=== PATIENT | female | born 1940 | race Caucasian/White ===

== ENCOUNTER → 2017-03-01 | Outpatient (CLI) | payer MEDICARE ==
[~2017-03-01] MED LIST: ALEN1TAB48 PO; ALPR0.25 PO; AMLO5 PO; ASCO500 PO; ASPI325T PO; ASPI81CH CHEW; ATOR20TA42 PO; CALC-179 PO; CALC1TAB12 PO; CARV12.5 PO; CARV12.52 PO; CITA10TA4 PO; COQ1150C2 PO; COQ150CA PO; IRBE300T11 PO; LEVO.075 PO; LEVO88TA2 PO; LIPI20TA PO; OMEG100010 PO; PERC2.5T PO; PERC5TAB12 PO; PRED5 PO; PRED5TAB PO; PRIL20TA2 PO; VITA1CAP17 PO; VITA500T83 PO
--- NOTE | 2017-03-03 10:55 | RSPPFT ---
DATE OF PROCEDURE: 03/01/17 COMMENTS: VOLUMES DYNAMIC: FVC and FEV1 moderately reduced. STATIC: TLC, RV mildly reduced; FRC normal. FLOWS: FEV1% mildly reduced; FEF 25-75 severely reduced. DIFFUSION: Severely reduced. FLOW VOLUME LOOP: Pattern of variable intrathoracic airways obstruction. IMPRESSION: Moderate obstructive ventilator defect with reduction in diffusion consistent with emphysema. Minimal change post-bronchodilator. There is also a co-existent restrictive defect. Airways resistance is increased.
== END ==
LOC: PHRSP 10:31
PROVIDERS: ATTEND Internal Medicine
DX: J44.9 Chronic obstructive pulmonary disease, unspecified (principal)
CPT/HCPCS: 94060; 94620; 94726; 94729

== ENCOUNTER 2017-03-07 17:25 | Emergency (ER) | payer MEDICARE ==
[~2017-03-07] VITALS: Ht 157.5 cm; Wt 73.0 kg
[~2017-03-07 17:25] MED LIST changes: -ALEN1TAB48 PO; -ALPR0.25 PO; -ASPI81CH CHEW; -CALC1TAB12 PO; -CARV12.52 PO; -CITA10TA4 PO; -COQ150CA PO; -LEVO88TA2 PO; -LIPI20TA PO; -OMEG100010 PO; -PERC2.5T PO; -PERC5TAB12 PO; -PRED5TAB PO; -VITA1CAP17 PO; -VITA500T83 PO
[2017-03-07] MEDS ORDERED: IOHEXOL 350 MG/ML 10 ML VIAL (for RAD DIAG) IVCONTRAST ONE (17:26)
[2017-03-07 17:28] VITALS: BP 188/83; PULSE 77; RESP 17; TEMP 98.4; O2SAT 95
--- NOTE | 2017-03-07 17:44 | PD ---
Physical Exam Time Seen by Provider: 17:42 Narrative 76yo F c/o left sided chest pain started around 3 am. Has left lung needle biopsy scheduled tomorrow, here at [place], of a nodule found on CT January 17. + SOB and pain with deep breathing. HX of AL and stents. Patient seen in triage. VS reviewed. Patient awaiting bed placement. Data Data Last Documented VS Vital Signs Date Time Temp Pulse Resp B/P (MAP) Pulse Ox O2 Delivery O2 Flow Rate FiO2 03/07/17 17:28 98.4 77 17 188/83 (118) 95 MDM Supervised Visit with DELORIS: Yamile Goldberg Mar 07, 2017 17:44
[2017-03-07] MEDS ORDERED: SODIUM CHLORIDE 0.9% FLUSH 10 ML FLUSH IVF PRN (17:45)
[2017-03-07 18:33] LABS: AUTOMATED NEUTROPHIL # 10.2 TH/MM3 (1.8-7.7); BASOPHIL % 0.3 % (0.0-2.0); EOSINOPHIL # 0.1 TH/MM3 (0-0.4); EOSINOPHIL % 1.1 % (0.0-4.0); HEMATOCRIT 32.8 % (35.0-46.0); HEMO FLAGS DIFF FINAL; LYMPH % 14.9 % (9.0-44.0); MEAN CELL VOLUME 81.9 FL (80.0-100.0); MEAN CORPUSCULAR HEMOGLOBIN 26.7 PG (27.0-34.0); MEAN CORPUSCULAR HGB CONC 32.6 % (32.0-36.0); MONO % 9.3 % (0.0-8.0); NEUT % 74.4 % (16.0-70.0); PLATELET COUNT 280 TH/MM3 (150-450); RED CELL DISTRIBUTION WIDTH 14.5 % (11.6-17.2); WHITE BLOOD COUNT 13.7 TH/MM3 (4.0-11.0)
[2017-03-07 18:40] LABS: APTT (PATIENT) 21.1 SEC (24.3-30.1); INTERNATIONAL NORMALIZED RATIO 1.1 RATIO; PROTHROMBIN TIME - PATIENT 11.8 SEC (9.8-11.6)
[2017-03-07 18:52] LABS: BICARBONATE 29.1 MEQ/L (21.0-32.0); MAGNESIUM 1.7 MG/DL (1.5-2.5)
--- NOTE | 2017-03-07 19:50 | RADRPT ---
EXAM DATE/TIME: 03/07/2017 18:16 [facility] COMPARISON: CHEST SINGLE AP, November 26, 2012, 6:22. CHEST PA & LAT, March 05, 2012, 11:44. INDICATIONS : Left upper chest pain today. MEDICAL HISTORY : Cardiovascular disease. SURGICAL HISTORY : Coronary artery stent. ENCOUNTER: Initial ACUITY: 1 day PAIN SCORE: 5/10 LOCATION: Left chest FINDINGS: PA and lateral views of the chest demonstrate a new nonspecific patchy infiltrate in the left upper l true. There is chronic interstitial changes bilaterally. The heart size is enlarged but stable.. Osse ous structures are intact. CONCLUSION: There is a new nonspecific infiltrate in the left upper lung. Pneumonia would be the primary consider ation. Recommend followup chest in 2-3 weeks after appropriate medical therapy. If the infiltrate pope s not resolve after appropriate medical therapy, recommend a noncontrast CT thorax for further evalua tion. Beto Castro MD on March 07, 2017 at 19:46 Board Certified Radiologist. This report was verified electronically.
[2017-03-07 20:16] VITALS: BP 200/95; PULSE 79; RESP 19; O2SAT 100
[2017-03-07 20:22] VITALS: BP 206/89; PULSE 72; RESP 16; O2SAT 100
--- NOTE | 2017-03-07 20:35 | PD ---
HPI Chief Complaint: Chest Pain Time Seen by Provider: 20:13 Travel History International Travel<30 days: No Contact w/Intl Traveler<30days: No Traveled to known affect area: No History of Present Illness HPI 76yo F with PMH of CAD s/p cardiac stent LAD 05/17/2010 and stent circumflex , HLD, HTN, SLE, hypothyroidism presents to the ED with c/o left sided chest pain since 3pm today. States it is achy, pressure like and worst with deep breathing. Associated with sob. Exertion makes the chest pain better. She has had similar chest pain in different parts of her left chest since 2016 and has had a CT scan that showed a lung nodule in her left upper lung. She was recently clear by her executive asst Dr. Rebollar for biopsy of the lung nodule. Denies any fever, cough, n/v, abdominal pain, headache, focal weakness or numbness. Pt's blood pressure is found to be elevated in the ED and pt states she has been compliant with her blood pressure medications. Last stress test I have on our record is in 11/2012. PFSH Past Medical History Arthritis: Yes Asthma: Yes (ASTHMATIC BRONCHITIS WHEN IN [place]) Autoimmune Disease: Yes (LUPUS) Blood Disorders: No Anxiety: No Depression: No Heart Rhythm Problems: Yes (BBB, TACHYCARDIA) Cancer: No Cardiac Catheterization: No Cardiovascular Problems: Yes (NH, 2 STENTS) High Cholesterol: Yes Chemotherapy: No Chest Pain: Yes Congestive Heart Failure: No COPD: No Diabetes: No Diminished Hearing: No Endocrine: Yes Gastrointestinal Disorders: Yes (TUBULOVILLOUS POLYP) GERD: Yes Glaucoma: No Genitourinary: No Hepatitis: No Hiatal Hernia: No Hypertension: Yes Immune Disorder: Yes Implanted Vascular Access Dvce: Yes Musculoskeletal: Yes (OSTEOPENIA) Neurologic: No Psychiatric: No Reproductive: No Respiratory: Yes Myocardial Infarction: Yes (05/19) Radiation Therapy: No Sickle Cell Disease: No Sleep Apnea: No Thyroid Disease: Yes Ulcer: No Menopausal: Yes Past Surgical History Abdominal Surgery: No AICD: No Appendectomy: No Arteriovenous Shunt: No Body Medical Devices: STENTS Cardiac Surgery: Yes (TWO STENTS IN ONE ARTERY, ONE STENT IN ANOTHER ARTERY, CARDIAC CATHERIZATIO) Cholecystectomy: No Coronary Artery Bypass Graft: No Ear Surgery: No Endocrine Surgery: Yes (THYROIDECTOMY TWICE) Eye Surgery: Yes (CATARACT SURGERY/RADIALECTOMETRY ON LEFT EYE) Genitourinary Surgery: No Gynecologic Surgery: Yes (SALPINGO-OPHERECTOMY) Insulin Pump: No Joint Replacement: No Oral Surgery: Yes (TONSILLECTOMY) Pacemaker: No Thoracic Surgery: No Other Surgery: Yes Social History Alcohol Use: No Tobacco Use: No Substance Use: No Allergies-Medications (Allergen,Severity, Reaction): Coded Allergies: clarithromycin (Unverified Allergy, Intermediate, RASH, 03/07/17) codeine (Unverified Allergy, Intermediate, NAUSEA, 03/07/17) fluconazole (Unverified Allergy, Intermediate, RASH, 03/07/17) leflunomide (Unverified Allergy, Intermediate, RASH, 03/07/17) levofloxacin (Unverified Allergy, Intermediate, RASH, 03/07/17) Reported Meds & Prescriptions Reported Meds & Active Scripts Active Reported Citalopram (Citalopram Hydrobromide) 10 Mg Tab 10 Mg PO DAILY Prednisone 5 Mg Tab 4 Mg PO DAILY Irbesartan 300 Mg Tab 300 Mg PO Lipitor (Atorvastatin Calcium) 20 Mg Tab 20 Mg PO DAILY Norvasc (Amlodipine Besylate) 5 Mg Tab 5 Mg PO DAILY Calcium (Calcium & Phosphorus W/ Vitami) Tab 1 Tab PO BID Coq10 (Coenzyme Q10) 150 Mg Cap 150 Mg PO DAILY Vitamin C 500 Mg Tab (Ascorbic Acid) 500 Mg Tab 500 Mg PO DAILY Prilosec Otc (Omeprazole Magnesium) 20 Mg Tab 20 Mg PO DAILY Synthroid (Levothyroxine Sodium) 75 Mcg Tab 88 Mcg PO DAILY Aspirin 325 mg (Aspirin) 325 Mg Tab 81 Mg PO DAILY Coreg 12.5 mg (Carvedilol) 12.5 Mg Tab 25 Mg PO BID Review of Systems Except as stated in HPI: all other systems reviewed are Neg Physical Exam Narrative GENERAL: 76yo F not in distress. SKIN: Focused skin assessment warm/dry. HEAD: Atraumatic. Normocephalic. CARDIOVASCULAR: Regular rate and rhythm. No murmur appreciated. RESPIRATORY: No accessory muscle use. Clear to auscultation. Breath sounds equal bilaterally. CHEST WALL: Not tender to palpation. GASTROINTESTINAL: Abdomen soft, non-tender, nondistended. No rebound tenderness or guarding. MUSCULOSKELETAL: No obvious deformities. No clubbing. No cyanosis. No edema. NEUROLOGICAL: Awake and alert. No obvious cranial nerve deficits. Motor grossly within normal limits. Normal speech. PSYCHIATRIC: Appropriate mood and affect; insight and judgment normal. Data Data Last Documented VS Vital Signs Date Time Temp Pulse Resp B/P (MAP) Pulse Ox O2 Delivery O2 Flow Rate FiO2 03/07/17 21:35 80 18 196/90 (125) 100 Nasal Cannula 2.00 03/07/17 17:28 98.4 Orders Orders Electrocardiogram (03/07/17 17:45) Basic Metabolic Panel (Bmp) (03/07/17 17:45) Ckmb (Isoenzyme) Profile (03/07/17 17:45) Complete Blood Count With Diff (03/07/17 17:45) Magnesium (Mg) (03/07/17 17:45) Prothrombin Time / Inr (Pt) (03/07/17 17:45) Act Partial Throm Time (Ptt) (03/07/17 17:45) Troponin I (03/07/17 17:45) Ecg Monitoring (03/07/17 17:45) Iv Access Insert/Monitor (03/07/17 17:45) Oximetry (03/07/17 17:45) Oxygen Administration (03/07/17 17:45) Sodium Chloride 0.9% Flush (Ns Flush) (03/07/17 17:45) Chest, Pa & Lat (03/07/17 17:45) Hydralazine Inj (Apresoline Inj) (03/07/17 21:00) Ct Pulmonary Angiogram (03/07/17 ) Morphine Inj (Morphine Inj) (03/07/17 21:00) Iohexol 350 Inj (Omnipaque 350 Inj) (03/07/17 17:26) Labs Laboratory Tests Test 03/07/17 18:04 White Blood Count 13.7 TH/MM3 Red Blood Count 4.00 MIL/MM3 Hemoglobin 10.7 GM/DL Hematocrit 32.8 % Mean Corpuscular Volume 81.9 FL Mean Corpuscular Hemoglobin 26.7 PG Mean Corpuscular Hemoglobin Concent 32.6 % Red Cell Distribution Width 14.5 % Platelet Count 280 TH/MM3 Mean Platelet Volume 7.3 FL Neutrophils (%) (Auto) 74.4 % Lymphocytes (%) (Auto) 14.9 % Monocytes (%) (Auto) 9.3 % Eosinophils (%) (Auto) 1.1 % Basophils (%) (Auto) 0.3 % Neutrophils # (Auto) 10.2 TH/MM3 Lymphocytes # (Auto) 2.0 TH/MM3 Monocytes # (Auto) 1.3 TH/MM3 Eosinophils # (Auto) 0.1 TH/MM3 Basophils # (Auto) 0.0 TH/MM3 CBC Comment DIFF FINAL Differential Comment Prothrombin Time 11.8 SEC Prothromb Time International Ratio 1.1 RATIO Activated Partial Thromboplast Time 21.1 SEC Blood Urea Nitrogen 18 MG/DL Creatinine 0.89 MG/DL Random Glucose 117 MG/DL Calcium Level 8.6 MG/DL Magnesium Level 1.7 MG/DL Sodium Level 135 MEQ/L Potassium Level 4.0 MEQ/L Chloride Level 100 MEQ/L Carbon Dioxide Level 29.1 MEQ/L Anion Gap 6 MEQ/L Estimat Glomerular Filtration Rate 61 ML/MIN Total Creatine Kinase 59 U/L Troponin I 0.02 NG/ML MDM Medical Decision Making Medical Screen Exam Complete: Yes Emergency Medical Condition: Yes Interpretation(s) EKG: NSR 68bpm. RBBB. Q wave III, aVF. TWI III, aVF, V4. Differential Diagnosis ACS vs. pneumonia vs. malignancy vs. pleural effusion vs. PE Narrative Course 76yo F with pleuritic chest pain since 3pm today. Pt had similar chest pain intermittently since January and is having an outpatient work up for biopsy of her lung nodule found on CT scan. Labs reviewed, leukocytosis at 13.7. H/H is low at 10.7/32.8 but this is her baseline. Troponin negative. CXR showed a new nonspecific infiltrate in left upper lung. Pneumonia would be primary consideration. This may be the lung nodule that was found on previous CT scan. Pt has no fever or cough so I do not think she has pneumonia. I discussed with Dr. Rebollar and he states that this pain is from her cancer. He knows her very well and has seen her for this before. 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 This is likely chest wall pain from her malignancy but will do CT angio to r/o PE since she has increased risk for PE. Pt has appointment with Dr. Beltran tomorrow for biopsy. Blood pressure is 206/89 , will give hydralazine 10mg IV and morphine 2mg IV for pain. CT angio showed no PE. Pleural based soft tissue mass in anterior left upper lung. Pt already has biopsy scheduled tomorrow. Repeat BP is 153/72 and saturating at 98% on RA. Return precautions given. Diagnosis Primary Impression: Lung mass Patient Instructions: General Instructions Departure Forms: Tests/Procedures Additional Instructions: Please follow up with Dr. Beltran tomorrow for biopsy. Return to the ED if symptoms worsen. Med/Other Pt SpecificInfo: Prescription(s) given Scripts Oxycodone-Acetaminophen (Percocet) 2.5-325 mg Tab 1 TAB PO Q6H Y for PAIN SCALE 1 TO 4 for 3 Days, #12 TAB 0 Refills Prov: Izabela Urbano DO 03/07/17 Disposition: 01 DISCHARGE HOME Condition: Stable Izabela Urbano DO Mar 07, 2017 20:35
[2017-03-07] MEDS ORDERED: hydrALAZINE HCL 20 MG/ML VIAL IV PUSH ONE (21:00)
[2017-03-07] MEDS ORDERED: MORPHINE SULFATE 4 MG/ML INJ IV PUSH ONE (21:00)
[2017-03-07] MEDS ORDERED: PRED5TAB PO (21:11)
[2017-03-07] MEDS ORDERED: CITA10TA4 PO (21:12)
[2017-03-07 21:35] VITALS: BP 196/90; PULSE 80; RESP 18; O2SAT 100
--- NOTE | 2017-03-07 22:16 | RADRPT ---
EXAM DATE/TIME: 03/07/2017 21:47 [facility] COMPARISON: CHEST PA & LAT, March 07, 2017, 18:16. INDICATIONS : Short of breath,evaluate for pulmonary embolism. History of left chest wall malignancy. IV CONTRAST: 60 cc Omnipaque 350 (iohexol) IV RADIATION DOSE: 19.81 CTDIvol (mGy) MEDICAL HISTORY : Cardiovascular disease. Hypertension. Lupus. SURGICAL HISTORY : Coronary artery stent. ENCOUNTER: Initial ACUITY: 2 days PAIN SCALE: 3/10 LOCATION: chest TECHNIQUE: Volumetric scanning of the chest was performed using a pulmonary embolism protocol MIP images were re constructed. Using automated exposure control and adjustment of the mA and/or kV according to patien t size, radiation dose was kept as low as reasonably achievable to obtain optimal diagnostic quality images. DICOM format image data is available electronically for review and comparison. Follow-up recommendations for detected pulmonary nodules are based at a minimum on nodule size and pa tient risk factors according to Fleischner Society Guidelines. FINDINGS: PULMONARY ARTERIES: No filling defects are seen in the pulmonary arteries through the segmental level. LUNGS: There is a 4 mm and 7 mm nodule in the right upper lung. There are interstitial nonspecific infiltrat es in both lung bases, left greater than right. There is a pleural-based soft tissue mass along the a nterior left upper lung measuring 5.5 x 2.0 cm. The adjacent bony structures remain grossly intact. PLEURAE: No pleural effusions. Pleural-based mass in the anterior left upper lung as described. MEDIASTINUM: Several enlarged nonspecific mediastinal lymph nodes are demonstrated suspicious for adenopathy. MUSCULOSKELETAL: Within normal limits for patient age. Bony degenerative changes. MISCELLANEOUS: The visualized upper abdominal organs demonstrate no acute abnormality. CONCLUSION: 1. No evidence of pulmonary embolism. 2. Pleural-based soft tissue mass in the anterior left upper lung measuring 5.5 x 2.0 cm. Primary patricia plastic disease is the consideration. There also 2 nonspecific pulmonary nodules in the right upper l true. There is nonspecific mediastinal adenopathy. Recommend a PET/CT to evaluate for hypermetabolic activity and staging. 3. Nonspecific interstitial infiltrates are noted in both lung bases, left greater than right. This c ould be either chronic or acute. Beto Castro MD on March 07, 2017 at 22:06 Board Certified Radiologist. This report was verified electronically.
[2017-03-07] MEDS ORDERED: PERC2.5T PO (22:56)
[2017-03-08] MEDS ORDERED: VITA500T83 PO (06:49)
[2017-03-08] MEDS ORDERED: LIPI20TA PO (06:49)
[2017-03-08] MEDS ORDERED: LEVO88TA2 PO (06:49)
[2017-03-08] MEDS ORDERED: ASPI81CH CHEW (06:49)
[2017-03-08] MEDS ORDERED: AMLO5 PO (06:49)
[2017-03-08] MEDS ORDERED: PRIL20TA2 PO (06:49)
[2017-03-08] MEDS ORDERED: CALC1TAB12 PO (06:49)
[2017-03-08] MEDS ORDERED: IRBE300T11 PO (06:49)
[2017-03-08] MEDS ORDERED: COQ150CA PO (06:49)
[2017-03-08] MEDS ORDERED: CARV12.52 PO (06:49)
[2017-03-08] MEDS ORDERED: PERC5TAB12 PO (12:38)
--- NOTE | 2017-03-08 17:04 | EKG ---
Date Performed: 03/07/2017 Time Performed: 17:52:02 PTAGE: 76 years EKG: Sinus rhythm INDETERMINATE AXIS RIGHT BUNDLE BRANCH BLOCK Since previous tracing, no significant change noted ABN ORMAL ECG PREVIOUS TRACING : 11/26/2012 19.32 DOCTOR: April King Interpretating Date/Time 03/08/2017 17:01:42
== END 2017-03-07 23:47 | disposition home or self-care (01) ==
LOC: NEPC 17:25
DX: R91.8 Other nonspecific abnormal finding of lung field (principal); R07.89 Other chest pain; R06.02 Shortness of breath; I45.10 Unspecified right bundle-branch block; R94.31 Abnormal electrocardiogram [ECG] [EKG]; I25.10 Atherosclerotic heart disease of native coronary artery without angina pectoris; E78.5 Hyperlipidemia, unspecified; I10 Essential (primary) hypertension; M32.9 Systemic lupus erythematosus, unspecified
CPT/HCPCS: 71020; 71275; 80048; 82550; 83735; 84484; 85025; 85610; 85730; 93005; 96374; 96375; 99285; J0360; J2270; Q9967

== ENCOUNTER 2017-03-08 06:24 | Day surgery (SDC) | payer MEDICARE ==
--- NOTE | 2017-03-07 07:54 | MB ---
cc: HAL WALTER M.D., STEVEN KOHEN,PAXTON REBOLLAR,MIRTHA Schultz M.D. DATE OF CONSULTATION: 02/24/2017 REASON FOR CONSULTATION: This is for an outpatient lung biopsy being scheduled. HISTORY OF PRESENT ILLNESS Miss Wheeler is a 76-year-old white female who has had a vague discomfort in the left upper chest for several weeks, she saw her primary physician who did a chest x-ray, it was abnormal. She had a CT scan which revealed a 6 x 2 left upper lobe mass probable malignancy. She has minimal prior smoking history, less than 5-10 cigarettes a day over 10-15 years and quit smoking in her mid to late 30s, 40 years ago. She does get short of breath with exertion. She has been told she has asthmatic bronchitis but does not take any specific therapy at present. She has had no unusual cough or hemoptysis. No purulent sputum or fever. No weight loss or loss of appetite. The vague discomfort in her left upper chest was her only symptom. She had a CT of her head as well which revealed some chronic vascular changes but nothing to suggest malignancy. She does have a significant prior coronary history followed by Dr. Rebollar she had a stent placed in 2009 but currently has no anginal symptoms or symptoms of heart failure. She also has a history of systemic lupus which probably be back 30-40 years but was only diagnosed about [address] Jansen follows her now on 4-5 mg of prednisone a day, under good control. PAST MEDICAL HISTORY: Additional past history, hysterectomy Thyroidectomy for goiter Reflux with mild gastritis Atherosclerotic cerebrovascular disease Hypertension. No prior history of malignancy. ALLERGIES BIAXIN LEVAQUIN CODEINE DIFLUCAN MEDICATIONS 1. Aspirin 2. Statin 3. Amlodipine. 4. Carvedilol 5. Thyroid 6. Alendronate. 7. Omeprazole 8. Multiple vitamin. FAMILY HISTORY Father of complications of alcoholism and stomach cancer. Mother had diabetes and hypertension and in her 90s. Four children in good health A brother in good health. SOCIAL HISTORY She is living with her of many years. Unfortunately he is chronically ill and is currently on Hospice. She is retired from [employer]. Smoking noted. No alcohol use. No animal exposures. She is a practicing [employer]. REVIEW OF SYSTEMS Weight is fine, appetites been stable. She has had cataracts removed. No cardiovascular symptoms at present. No significant musculoskeletal complaints. PHYSICAL EXAMINATION VITAL SIGNS: 122/64, pulse 78, temperature 98, Respiratory 18, sat 98% room air. HEAD, EYES, EARS, NOSE, AND THROAT: sclerae anicteric. Pharynx is clear. NECK: She has a thyroidectomy scar anteriorly in the suprasternal notch. No adenopathy palpable there or in supraclavicular regions. LUNGS: She has clear lungs. No wheezes or rales. No congestion. HEART: Regular rhythm. No harsh murmur. No audible S3. ABDOMEN: Abdomen is soft, nontender. EXTREMITIES: She has no peripheral edema, cyanosis or clubbing. RADIOLOGIC: As noted above. CT scan reveals a pleural-based left upper lobe mass 6 x 2 cm. Radiologist comments that a CT-guided biopsy could be accomplished. ASSESSMENT AND PLAN: 1. The patient will be scheduled for pulmonary functions next week and then an outpatient lung biopsy. 2. Further diagnostic and/or therapeutic intervention will depend on the results of these initial diagnostic studies. R. MD SUDHIR Samaniego/aylin /10:09 AM /7:48 AM
[2017-03-08] VITALS (7 sets, daily range): BP systolic 135–155; BP diastolic 18–75; PULSE 70–76; RESP 16–18; TEMP 98.4–98.7; O2SAT 92–97
[~2017-03-08] VITALS: Ht 157.5 cm; Wt 73.2 kg
[~2017-03-08 06:24] MED LIST changes: +CITA10TA4 PO; +PERC2.5T PO; -PRED5 PO; +PRED5TAB PO
[2017-03-08] MEDS ORDERED: SODIUM CHLOR 0.9% 1000 ML IV SCH (06:45)
[2017-03-08] MEDS ORDERED: IRBE300T11 PO (06:49)
[2017-03-08] MEDS ORDERED: VITA500T83 PO (06:49)
[2017-03-08] MEDS ORDERED: COQ150CA PO (06:49)
[2017-03-08] MEDS ORDERED: ASPI81CH CHEW (06:49)
[2017-03-08] MEDS ORDERED: AMLO5 PO (06:49)
[2017-03-08] MEDS ORDERED: LEVO88TA2 PO (06:49)
[2017-03-08] MEDS ORDERED: CALC1TAB12 PO (06:49)
[2017-03-08] MEDS ORDERED: PRIL20TA2 PO (06:49)
[2017-03-08] MEDS ORDERED: CARV12.52 PO (06:49)
[2017-03-08] MEDS ORDERED: LIPI20TA PO (06:49)
[2017-03-08] MEDS ORDERED: LIDOCAINE HCL 1% 20 ML VIAL ONE (07:46)
[2017-03-08] MEDS ORDERED: ONDANSETRON HCL 4 MG/2 ML VIAL ONE (07:59)
[2017-03-08] MEDS ORDERED: MIDAZOLAM HCL 2 MG/2 ML VIAL ONE (08:11)
--- NOTE | 2017-03-08 08:52 | PD.RAD ---
Post CT Procedure Prog Note Pre Procedure Diagnosis: (1) Lung mass Post Procedure Diagnosis: (1) Lung mass Procedure Date: Mar 08, 2017 Supervising Radiologist: Clifton Hernández JR Anesthesia: Conscious Sedation Plan of Activity Patient to Unit: ROPU Patient Condition: Good See PACS Report for procedural detail/treatment Biopsy Imaging Guidance: CT Side: Left Biopsy Procedure: Lung Specimen: Core Biopsy Findings: Left upper lobe peripheral mass against chest wall. 3 core samples taken. No hemorrhage or pneumothorax on post bx CT images. Jr. Edgar,Clifton Mccray MD Mar 08, 2017 08:52
--- NOTE | 2017-03-08 09:14 | RADRPT ---
EXAM DATE/TIME: 03/08/2017 08:19 [facility] COMPARISON: No previous studies available for comparison. INDICATIONS : Left lung mass SEDATION TIME: 15 minutes BIOPSY SITE: Left lung MEDICATION(S): 1.) 2 mg midazolam (Versed) IV 2.) 100 mcg fentanyl (Sublimaze) IV DEVICE(S): 1.) 17 gauge introducer 2.) 18 gauge Temno core biopsy needle MEDICAL HISTORY : Hypertension. Gastroesophageal reflux disease. Cardiovascular disease. SURGICAL HISTORY : Hysterectomy. ENCOUNTER: Initial ACUITY: 1 day PAIN SCORE: 2/10 LOCATION: Left chest A total of three core specimen(s) were obtained and sent to the laboratory for pathologic evaluation. PROCEDURE: 1. CT guided lung biopsy. 2. Conscious sedation with continuous EKG and oximetry monitoring. 3. EKG and oximetry remained stable throughout the procedure. Prior to the procedure informed consent was obtained. Any appropriate prior imaging studies were rev iewed. Using automated exposure control and adjustment of the mA and/or kV according to patient size, radiation dose was kept as low as reasonably achievable to obtain optimal diagnostic quality images. DICOM format image data is available electronically for review and comparison. The site was prepped in a sterile fashion. Full sterile technique was used, including cap, mask, goran rile gloves and gown and a large sterile sheet. Hand hygiene and 2% chlorhexidine and/or betadine/al cohol prep was utilized per protocol for cutaneous antisepsis. The skin and subcutaneous tissues wer e infiltrated with local anesthetic solution. With CT guidance the peripheral left upper lobe pulmonary mass that abuts the chest wall was localize d. Biopsy was performed using the prescribed needle as above. 3 core samples taken. Adequate hemosta sis was obtained with compression at the puncture site. Follow-up CT scan reveals no pneumothorax. Conscious sedation was performed with the prescribed dosages and duration as above in the presence of an independent trained radiology nurse to assist in the monitoring of the patient. EKG and oximetry remained stable throughout the procedure. The patient tolerated the procedure well and there were no complications. The patient was sent to Radiology Outpatient Unit in stable condition. CONCLUSION: Uncomplicated CT guided biopsy of a peripheral left upper lobe pulmonary mass.. Clifton Hernández Jr., MD on March 08, 2017 at 9:11 Board Certified Radiologist. This report was verified electronically.
[2017-03-08] MEDS ORDERED: PERC5TAB12 PO (12:38)
--- NOTE | 2017-03-08 12:38 | PD ---
Physical Exam Narrative Patient requesting change for Percocet. Data Data Last Documented VS Vital Signs Date Time Temp Pulse Resp B/P (MAP) Pulse Ox O2 Delivery O2 Flow Rate FiO2 03/08/17 11:10 70 18 155/66 (95) 95 03/08/17 08:55 98.7 03/08/17 06:59 Room Air Orders Orders Vital Signs (Adult) JERSON.Q4H (03/08/17 06:38) Sodium Chlor 0.9% 1000 Ml Inj (Ns 1000 M (03/08/17 06:45) Diet Regular Basic (03/08/17 Lunch) Ct Lung Biopsy (03/08/17 07:19) Lidocaine 1% Inj (Xylocaine 1% Inj) (03/08/17 07:46) Ondansetron Inj (Zofran Inj) (03/08/17 07:59) Fentanyl Inj (Fentanyl Inj) (03/08/17 08:11) Midazolam Inj (Versed Inj) (03/08/17 08:11) Vital Signs (Adult) Q15MX2,Q30MX3 (03/08/17 08:49) Activity Bed Rest (03/08/17 08:49) Notify Dr: Other (03/08/17 08:49) Notify Dr. Parameters (03/08/17 08:49) Discontinue Iv (03/08/17 08:49) Discharge Instructions (03/08/17 08:49) MDM Supervised Visit with DELORIS: No Scripts Oxycodone-Acetaminophen (Percocet) 5-325 mg Tab 1 TAB PO Q6H Y for PAIN, #30 TAB 0 Refills Prov: Richar Durant MD 03/08/17 Richar Durant MD Mar 08, 2017 12:38
== END 2017-03-08 12:30 | disposition home or self-care (01) ==
LOC: HRAD 06:24 → HRIP 06:28 → HRAD 12:30
PROVIDERS: ATTEND Internal Medicine
DX: C34.12 Malignant neoplasm of upper lobe, left bronchus or lung (principal); M32.9 Systemic lupus erythematosus, unspecified; I10 Essential (primary) hypertension; K21.9 Gastro-esophageal reflux disease without esophagitis; Z95.5 Presence of coronary angioplasty implant and graft
CPT/HCPCS: 32405; 77012; 88305; 88341; 88342; J2250; J2405; J3010; J7030

== ENCOUNTER 2017-04-20 06:09 | Day surgery (SDC) | payer MEDICARE ==
[~2017-04-20] VITALS: Ht 160 cm; Wt 72.7 kg
[~2017-04-20 06:09] MED LIST changes: -ASCO500 PO; -ASPI325T PO; +ASPI81CH CHEW; -ATOR20TA42 PO; -CALC-179 PO; +CALC1TAB12 PO; -CARV12.5 PO; +CARV12.52 PO; -COQ1150C2 PO; +COQ150CA PO; -LEVO.075 PO; +LEVO88TA2 PO; +LIPI20TA PO; +PERC5TAB12 PO; +VITA500T83 PO
[2017-04-20 06:35] VITALS: BP 139/72; PULSE 69; RESP 20; TEMP 98.1; O2SAT 95
[2017-04-20] MEDS ORDERED: ALEN1TAB48 PO (06:43)
[2017-04-20] MEDS ORDERED: ALPR0.25 PO (06:44)
[2017-04-20] MEDS ORDERED: OMEG100010 PO (06:45)
[2017-04-20] MEDS ORDERED: VITA1CAP17 PO (06:47)
[2017-04-20] MEDS ORDERED: SODIUM CHLORIDE 0.9% 1000 ML IV SCH ×2 (07:00→07:15)
[2017-04-20] MEDS ORDERED: POVIDONE IODINE 5% (ANTISEPSIS KIT) 4 APPLICATIONS EACH NARE SCH ×2 (07:00→07:15)
[2017-04-20] MEDS ORDERED: CHLORHEXIDINE GLUCONATE 2 % 1 PACK (2 CLOTHS) TOPICAL SCH ×2 (07:00→07:15)
[2017-04-20] MEDS ORDERED: ceFAZolin 2 GM PREMIX 50 ML - implanted port/tunneled catheter insertion IV SCH ×2 (07:00→07:15)
[2017-04-20] MEDS ORDERED: VANCOMYCIN 1000 MG/NS 250 ML - implanted port/tunneled catheter IV SCH ×4 (07:00→07:15)
[2017-04-20] MEDS ORDERED: MIDAZOLAM HCL 5 MG/5 ML VIAL ONE (07:53)
[2017-04-20 07:55] LABS: APTT (PATIENT) 20.5 SEC (24.3-30.1); INTERNATIONAL NORMALIZED RATIO 1.1 RATIO; PROTHROMBIN TIME - PATIENT 11.7 SEC (9.8-11.6)
[2017-04-20] MEDS ORDERED: SODIUM CHLORIDE 0.9% FLUSH 10 ML FLUSH IVF PRN (09:00)
--- NOTE | 2017-04-20 09:00 | PD.RAD ---
Post Procedure Progress Note Pre Procedure Diagnosis: (1) Lung mass Post Procedure Diagnosis: (1) Lung mass Procedure Date: Apr 20, 2017 Supervising Radiologist: Iam Mclean Estimated blood loss: 3 CC Anesthesia: Local, Conscious Sedation Plan of Activity Patient to Unit: ROPU Patient Condition: Fair Additional Comments: Port placed via the right IJ. Port in good position OK for use. Full dictated report to follow. See PACS Report for procedural detail/treatment Iam Mclean MD Apr 20, 2017 08:59
[2017-04-20 09:13] VITALS: BP 142/68; PULSE 91; RESP 18; TEMP 97.9; O2SAT 94
[2017-04-20 09:43] VITALS: BP 119/79; PULSE 68; RESP 17; O2SAT 95
[2017-04-20 10:13] VITALS: BP 136/68; PULSE 65; RESP 18; O2SAT 97
--- NOTE | 2017-04-20 10:58 | RADRPT ---
EXAM DATE/TIME: 04/20/2017 07:56 [facility] COMPARISON: No previous studies available for comparison. INDICATIONS : Patient presents with lung cancer in need of port placement for chemotherapy treatment. MEDICAL HISTORY : Fall risk level 1 - sensorium and coordination int No Previous Radiation Therapy Preferred Language for Healthcare Information (JAPANESE) Cancer in 2016 Cataracts in 2012 Heart Attack/NM in 2010 Heart Disease in 2010 Anxiety in 2005 Coronary Stent in 2005 Anemia in 1999 Osteoarthritis in 1999 Osteoporosis in 1999 Rheumatoid Arthritis in 1998 Scleroderma in 1998 Hypertension in 1989 Lupus in 1989 Hemorrhoids in 1988 Thyroid Disease in 1961 SURGICAL HISTORY : Hysterectomy, Complete Biopsy in 2016 Cataract removal in 2012 Colon resection in 2012 Colonoscopy in 2011 UPPER ENDOSCOPY in 1998 Thyroidectomy in 1961 Tonsillectomy in 1944 ENCOUNTER: Initial ACUITY: 2 months PAIN SCORE: 0/10 LOCATION: N/A FLUORO TIME: 0.4 minutes IMAGE SERIES: 0 SEDATION TIME: 45 minutes ACCESS: Right internal jugular vein SEDATION: 1.) 4.5 mg midazolam (Versed) IV 2.) 200 mcg fentanyl (Sublimaze) IV Prophylactic antibiotics were administered with appropriate pre-procedure timing. Vancomycin within 2 hours of procedure, Ancef (or alternative) within 1 hour of procedure. DEVICE: 1. 8 [place] single lumen Smart port CT w/vortex PROCEDURE : 1. Continuous pulse oximetry and EKG monitoring. 2. Intravenous conscious sedation. 3. Ultrasound guidance for venous access. 4. Fluoroscopic guided implantable central venous port placement. The patient was placed supine. The neck was prepped in sterile fashion. Full sterile technique was u sed, including cap, mask, sterile gloves and gown, and a large sterile sheet. Hand hygiene and 2% ch lorhexidine Betadine was utilized per protocol for cutaneous antisepsis with appropriate dry time for site. Sterile gel and sterile probe cover were utilized for ultrasound guidance. The skin and sub cutaneous tissues were infiltrated with local anesthetic solution. Under direct ultrasound guidance, central venous access was accomplished via the right internal jugul ar vein. The ultrasound images depicting access guidance were stored and saved to PACS for permanent record. A subcutaneous pocket was created using blunt dissection. The port was introduced to the p ocket. The catheter tubing was fed through a subcutaneous tunnel to the venotomy site. The catheter tubing was cut to a suitable length and then was introduced through a valved Peel-Away sheath and po sitioned with catheter tubing tip at the cavo-atrial junction level. The pocket incision was closed with subcuticular Vicryl suture. Steri-Strips were applied. The port was flushed and locked with he francisco solution per protocol. Sterile dressing was applied to the site. The patient tolerated the pr ocedure well. Conscious sedation was performed with the prescribed dosages and duration as above in the presence of an independent trained radiology nurse to assist in the monitoring of the patient. EKG and oximetry remained stable throughout the procedure. The patient tolerated the procedure well and there were no complications. The patient was sent to post anesthesia recovery in stable condition. CONCLUSION: Uncomplicated ultrasound and fluoroscopic guided implanted central venous port catheter placement as described in detail above. An 8 [place] Power port was placed. Iam Mclean MD on April 20, 2017 at 10:56 Board Certified Radiologist. This report was verified electronically.
[2017-04-20 11:13] VITALS: BP 134/64; PULSE 64; RESP 17; O2SAT 99
== END 2017-04-20 11:19 | disposition home or self-care (01) ==
LOC: HROP 06:09 → HRIP 06:11 → HROP 11:19
PROVIDERS: ATTEND Internal Medicine
DX: Z45.2 Encounter for adjustment and management of vascular access device (principal); C34.90 Malignant neoplasm of unspecified part of unspecified bronchus or lung; I10 Essential (primary) hypertension; I25.2 Old myocardial infarction; Z95.5 Presence of coronary angioplasty implant and graft; Z79.01 Long term (current) use of anticoagulants
CPT/HCPCS: 36561; 76937; 77001; 85610; 85730; 99152; 99153; C1788; J0690; J1642; J2250; J3010; J3370; J7030; J7050

== ENCOUNTER 2017-06-23 12:53 | Inpatient (IN) | payer MEDICARE ==
[~2017-06-23] VITALS: Ht 160 cm; Wt 71.7 kg
[~2017-06-23 12:53] MED LIST changes: +ALEN1TAB48 PO; +ALPR0.25 PO; +ASPI-516 CHEW; -ASPI81CH CHEW; -IRBE300T11 PO; +OMEG100010 PO; -PERC2.5T PO; -PERC5TAB12 PO; +VITA1CAP17 PO
[2017-06-23] MEDS ORDERED: VANCOMYCIN INJ 1,000 MG in SODIUM CHLOR 0.9% 250 ML INJ 250 ML IV SCH (15:45)
[2017-06-23] MEDS ORDERED: Vancomycin Consult Pharmacy 1 EA OTHER SCH (15:45)
[2017-06-23] MEDS ORDERED: VANCOMYCIN INJ 1,800 MG in SODIUM CHLORID 0.9% 500 ML INJ 500 ML IV SCH (16:30)
[2017-06-23 16:45] VITALS: BP 131/71; PULSE 93; RESP 18; TEMP 98.6; O2SAT 97
--- NOTE | 2017-06-23 16:49 | RADRPT ---
EXAM DATE/TIME: 06/23/2017 16:31 [facility] COMPARISON: CHEST PA & LAT, March 07, 2017, 18:16. INDICATIONS : Shortness of breath- Coughing and wheezing. MEDICAL HISTORY : Hypertension. Gastroesophageal reflux disease. Cardiovascular disease SURGICAL HISTORY : Hysterectomy. ENCOUNTER: Subsequent ACUITY: 3 days PAIN SCORE: 0/10 LOCATION: Bilateral chest FINDINGS: Mild infiltrate in the left lung base and left upper lung. The right lung remains grossly clear. Ther e is some chronic interstitial changes bilaterally. The heart size is enlarged but stable. No definit e pleural effusions. There is a right-sided [id number] in place. The bony structures are stable. CONCLUSION: Mild infiltrate in the left lung base and right upper lung. Beto Castro MD on June 23, 2017 at 16:46 Board Certified Radiologist. This report was verified electronically.
[2017-06-23 16:50] LABS: AUTOMATED NEUTROPHIL # 1.8 TH/MM3 (1.8-7.7); BASOPHIL % 0.2 % (0.0-2.0); EOSINOPHIL % 0.2 % (0.0-4.0); HEMATOCRIT 22.2 % (35.0-46.0); LYMPH % 26.4 % (9.0-44.0); LYMPHOCYTE # 0.9 TH/MM3 (1.0-4.8); MEAN CELL VOLUME 85.2 FL (80.0-100.0); MEAN CORPUSCULAR HEMOGLOBIN 29.9 PG (27.0-34.0); MEAN CORPUSCULAR HGB CONC 35.1 % (32.0-36.0); MONO % 16.7 % (0.0-8.0); NEUT % 56.5 % (16.0-70.0); PLATELET COUNT 86 TH/MM3 (150-450); WHITE BLOOD COUNT 3.3 TH/MM3 (4.0-11.0)
[2017-06-23 17:00] LABS: HEMO FLAGS AUTO DIFF
[2017-06-23 17:14] LABS: APTT (PATIENT) 28.5 SEC (24.3-30.1); INTERNATIONAL NORMALIZED RATIO 1.2 RATIO; PROTHROMBIN TIME - PATIENT 11.8 SEC (9.8-11.6)
[2017-06-23 17:17] LABS: BICARBONATE 30.1 MEQ/L (21.0-32.0); CALCIUM-PROTEIN CORRECTED 7.9 MG/DL (8.5-10.1); TOTAL BILIRUBIN ADULT 0.6 MG/DL (0.2-1.0)
[2017-06-23 17:38] LABS: OVALOCYTES 1+ (NORMAL); PLATELET ESTIMATE SMEAR LOW (NORMAL); PLATELET MORPHOLOGY NORMAL (NORMAL); SCAN/DIFF AUTO DIFF CONFIRMED
[2017-06-23] MEDS ORDERED: AZITHROMYCIN 500 MG/NS 250 ML IV SCH ×2 (18:00)
[2017-06-23] MEDS ORDERED: cefTRIAXone 1,000 MG/NS 100 ML IV SCH ×4 (19:00→20:00)
[2017-06-23] MEDS ORDERED: VANCOMYCIN INJ 1,800 MG in SODIUM CHLORID 0.9% 500 ML INJ 500 ML IV ONE (19:15)
[2017-06-23 20:03] VITALS: BP 127/64; PULSE 104; RESP 20; TEMP 98.8; O2SAT 95
[2017-06-23] MEDS ORDERED: PILL SPLITTER OTHER PRN (20:15)
[2017-06-23] MEDS: ATORVASTATIN 20 MG TAB PO SCH (21:39)
[2017-06-23] MEDS: CARVEDILOL 12.5 MG TAB PO SCH (21:39)
[2017-06-23] MEDS: AZITHROMYCIN 500 MG/NS 250 ML IV SCH ×2 (21:40)
[2017-06-23] MEDS: cefTRIAXone 1,000 MG/NS 100 ML IV SCH ×2 (21:41)
--- NOTE | 2017-06-24 02:33 | PD.ONC.PN ---
Subjective Subjective Remarks H&P DICTATED 77 year old with locally advanced NSCL s/p chemotherapy and XRT admitted with subjective fevers/cough/feeling unwell/fatigued Community acquired Pneumonia and symptomatic anemia Antibiotics started blood cultures pending if BC negative for 48 hours, will deescalate antibiotics Transfuse 1 unit of pRBC with premeds Objective Data Date Time Temp Pulse Resp B/P (MAP) Pulse Ox O2 Delivery O2 Flow Rate FiO2 06/23/17 20:03 98.8 104 20 127/64 (85) 95 06/23/17 16:45 98.6 93 18 131/71 (91) 97 Result Diagram: 06/23/17 1529 06/23/17 1529 Laboratory Results Laboratory Tests Test 06/23/17 15:29 White Blood Count 3.3 TH/MM3 Red Blood Count 2.60 MIL/MM3 Hemoglobin 7.8 GM/DL Hematocrit 22.2 % Mean Corpuscular Volume 85.2 FL Mean Corpuscular Hemoglobin 29.9 PG Mean Corpuscular Hemoglobin Concent 35.1 % Red Cell Distribution Width 22.0 % Platelet Count 86 TH/MM3 Mean Platelet Volume 7.3 FL Neutrophils (%) (Auto) 56.5 % Lymphocytes (%) (Auto) 26.4 % Monocytes (%) (Auto) 16.7 % Eosinophils (%) (Auto) 0.2 % Basophils (%) (Auto) 0.2 % Neutrophils # (Auto) 1.8 TH/MM3 Lymphocytes # (Auto) 0.9 TH/MM3 Monocytes # (Auto) 0.5 TH/MM3 Eosinophils # (Auto) 0.0 TH/MM3 Basophils # (Auto) 0.0 TH/MM3 CBC Comment AUTO DIFF Differential Comment AUTO DIFF CONFIRMED Platelet Estimate LOW Platelet Morphology Comment NORMAL Ovalocytes 1+ Prothrombin Time 11.8 SEC Prothromb Time International Ratio 1.2 RATIO Activated Partial Thromboplast Time 28.5 SEC Fibrinogen 376 mg/dL Blood Urea Nitrogen 11 MG/DL Creatinine 0.54 MG/DL Random Glucose 135 MG/DL Total Protein 5.6 GM/DL Albumin 2.6 GM/DL Calcium Level 7.1 MG/DL Alkaline Phosphatase 53 U/L Aspartate Amino Transf (AST/SGOT) 18 U/L Alanine Aminotransferase (ALT/SGPT) 20 U/L Total Bilirubin 0.6 MG/DL Sodium Level 135 MEQ/L Potassium Level 4.0 MEQ/L Chloride Level 97 MEQ/L Carbon Dioxide Level 30.1 MEQ/L Anion Gap 8 MEQ/L Estimat Glomerular Filtration Rate 109 ML/MIN Protein Corrected Calcium 7.9 MG/DL B-Type Natriuretic Peptide 60 PG/ML Culture Results Microbiology Date/Time Source Procedure Growth Status 06/23/17 17:11 Nasal Aspirate Influenza Types A,B Antigen (HEATHER) - Final NEGATIVE FOR FLU A AND B ANTIGEN.... Complete Administered Medications Medications (Trade) Dose Ordered Sig/Brenda Route PRN Reason Start Time Stop Time Status Last Admin Dose Admin Atorvastatin Calcium (Lipitor) 20 mg HS PO 06/23/17 21:00 06/23/17 21:39 Carvedilol (Coreg) 12.5 mg BID PO 06/23/17 21:00 06/23/17 21:39 Azithromycin 500 mg/Sodium Chloride 250 ml @ 250 mls/hr Q24H IV 06/23/17 20:00 06/23/17 21:40 Ceftriaxone Sodium 1000 mg/ Sodium Chloride 100 ml @ 200 mls/hr Q12H IV 06/23/17 21:00 06/23/17 21:41 Objective Remarks GENERAL: acutely ill SKIN: Warm and dry. HEAD: Normocephalic. EYES: No scleral icterus. No injection or drainage. NECK: Supple, trachea midline. No JVD or lymphadenopathy. LYMPHATIC: No adenopathy. CARDIOVASCULAR: tachycardic RESPIRATORY: left upper and lower lobe rhonchi/wheezing GASTROINTESTINAL: Abdomen soft, non-tender, nondistended. EXTREMITIES: No cyanosis, or edema. MUSCULOSKELETAL: Adequate muscle tone. NEUROLOGICAL: No obvious focal deficit. Awake, alert, and oriented x3. PSYCHIATRIC: Appropriate mood and affect; insight and judgment normal. Assessment/Plan Problem List: (1) Non-small cell carcinoma of lung ICD Codes: C34.90 - Malignant neoplasm of unspecified part of unspecified bronchus or lung (2) Community acquired pneumonia ICD Codes: J18.9 - Pneumonia, unspecified organism (3) Anemia ICD Codes: D64.9 - Anemia, unspecified (4) Thrombocytopenia ICD Codes: D69.6 - Thrombocytopenia, unspecified Sandip Dumont MD Jun 24, 2017 02:33
[2017-06-24] MEDS: VANCOMYCIN INJ 1,250 MG in SODIUM CHLOR 0.9% 250 ML INJ 250 ML IV SCH ×2 (05:09→18:41)
[2017-06-24] MEDS: LEVOTHYROXINE SODIUM 88 MCG TAB PO SCH (05:09)
[2017-06-24] MEDS ORDERED: ACETAMINOPHEN 325 MG TAB PO PRN (06:00)
[2017-06-24] MEDS ORDERED: diphenhydrAMINE HCL 25 MG CAP PO PRN (06:00)
[2017-06-24 06:08] LABS: HEMATOCRIT 22.8 % (35.0-46.0); MEAN CELL VOLUME 85.9 FL (80.0-100.0); MEAN CORPUSCULAR HEMOGLOBIN 30.3 PG (27.0-34.0); MEAN CORPUSCULAR HGB CONC 35.2 % (32.0-36.0); PLATELET COUNT 93 TH/MM3 (150-450); RED BLOOD COUNT 2.66 MIL/MM3 (4.00-5.30); RED CELL DISTRIBUTION WIDTH 21.7 % (11.6-17.2); WHITE BLOOD COUNT 3.1 TH/MM3 (4.0-11.0)
[2017-06-24 06:11] LABS: HEMO FLAGS AUTO DIFF
[2017-06-24 06:27] LABS: BICARBONATE 31.4 MEQ/L (21.0-32.0); POTASSIUM 3.6 MEQ/L (3.5-5.1)
[2017-06-24 06:58] LABS: CALCIUM-PROTEIN CORRECTED 7.7 MG/DL (8.5-10.1)
[2017-06-24 07:21] LABS: BANDS 8 % (0-6); METAMYELOCYTES 1 % (0-1); NEUTROPHIL # MANUAL DIFF 1.9 TH/MM3 (1.8-7.7); PLATELET ESTIMATE SMEAR LOW (NORMAL); PLATELET MORPHOLOGY NORMAL (NORMAL); POLYS (SEG NEUTROPHILS) 52 % (16-70); SCAN/DIFF FINAL DIFF MANUAL; WBC DIFF SAMPLE 100
[2017-06-24 07:22] LABS: ACANTHOCYTES OCC (NORMAL); OVALOCYTES 1+ (NORMAL); TEARDROP RBCS 1+ (NORMAL)
--- NOTE | 2017-06-24 10:18 | PD.ONC.PN ---
Subjective Subjective Remarks Afebrile Patient complaining of persistent cough "I'm not feeling much better yet" Objective Data Date Time Temp Pulse Resp B/P (MAP) Pulse Ox O2 Delivery O2 Flow Rate FiO2 06/23/17 20:03 98.8 104 20 127/64 (85) 95 06/23/17 16:45 98.6 93 18 131/71 (91) 97 06/24/17 06/24/17 06/24/17 07:00 15:00 23:00 Intake Total 930 ml Balance 930 ml Result Diagram: 06/24/17 0500 06/24/17 0500 Laboratory Results Laboratory Tests Test 06/23/17 15:29 06/24/17 05:00 White Blood Count 3.3 TH/MM3 3.1 TH/MM3 Red Blood Count 2.60 MIL/MM3 2.66 MIL/MM3 Hemoglobin 7.8 GM/DL 8.0 GM/DL Hematocrit 22.2 % 22.8 % Mean Corpuscular Volume 85.2 FL 85.9 FL Mean Corpuscular Hemoglobin 29.9 PG 30.3 PG Mean Corpuscular Hemoglobin Concent 35.1 % 35.2 % Red Cell Distribution Width 22.0 % 21.7 % Platelet Count 86 TH/MM3 93 TH/MM3 Mean Platelet Volume 7.3 FL 7.3 FL Neutrophils (%) (Auto) 56.5 % Lymphocytes (%) (Auto) 26.4 % Monocytes (%) (Auto) 16.7 % Eosinophils (%) (Auto) 0.2 % Basophils (%) (Auto) 0.2 % Neutrophils # (Auto) 1.8 TH/MM3 Lymphocytes # (Auto) 0.9 TH/MM3 Monocytes # (Auto) 0.5 TH/MM3 Eosinophils # (Auto) 0.0 TH/MM3 Basophils # (Auto) 0.0 TH/MM3 CBC Comment AUTO DIFF AUTO DIFF Differential Comment AUTO DIFF CONFIRMED FINAL DIFF MANUAL Platelet Estimate LOW LOW Platelet Morphology Comment NORMAL NORMAL Ovalocytes 1+ 1+ Prothrombin Time 11.8 SEC Prothromb Time International Ratio 1.2 RATIO Activated Partial Thromboplast Time 28.5 SEC Fibrinogen 376 mg/dL Blood Urea Nitrogen 11 MG/DL 7 MG/DL Creatinine 0.54 MG/DL 0.46 MG/DL Random Glucose 135 MG/DL 100 MG/DL Total Protein 5.6 GM/DL 5.9 GM/DL Albumin 2.6 GM/DL Calcium Level 7.1 MG/DL 7.1 MG/DL Alkaline Phosphatase 53 U/L Aspartate Amino Transf (AST/SGOT) 18 U/L Alanine Aminotransferase (ALT/SGPT) 20 U/L Total Bilirubin 0.6 MG/DL Sodium Level 135 MEQ/L 138 MEQ/L Potassium Level 4.0 MEQ/L 3.6 MEQ/L Chloride Level 97 MEQ/L 101 MEQ/L Carbon Dioxide Level 30.1 MEQ/L 31.4 MEQ/L Anion Gap 8 MEQ/L 6 MEQ/L Estimat Glomerular Filtration Rate 109 ML/MIN 131 ML/MIN Protein Corrected Calcium 7.9 MG/DL 7.7 MG/DL B-Type Natriuretic Peptide 60 PG/ML Differential Total Cells Counted 100 Neutrophils % (Manual) 52 % Band Neutrophils % 8 % Lymphocytes % 25 % Monocytes % 14 % Neutrophils # (Manual) 1.9 TH/MM3 Metamyelocytes 1 % Tear Drop Cells 1+ Acanthocytes OCC Culture Results Microbiology Date/Time Source Procedure Growth Status 06/23/17 17:11 Nasal Aspirate Influenza Types A,B Antigen (HEATEHR) - Final NEGATIVE FOR FLU A AND B ANTIGEN.... Complete Administered Medications Medications (Trade) Dose Ordered Sig/Brenda Route PRN Reason Start Time Stop Time Status Last Admin Dose Admin Vancomycin HCl 1250 mg/Sodium Chloride 262.5 ml @ 250 mls/hr Q12H IV 06/24/17 05:00 06/24/17 05:09 Atorvastatin Calcium (Lipitor) 20 mg HS PO 06/23/17 21:00 06/23/17 21:39 Carvedilol (Coreg) 12.5 mg BID PO 06/23/17 21:00 06/23/17 21:39 Levothyroxine Sodium (Synthroid) 88 mcg DAILY@0600 PO 06/24/17 06:00 06/24/17 05:09 Azithromycin 500 mg/Sodium Chloride 250 ml @ 250 mls/hr Q24H IV 06/23/17 20:00 06/23/17 21:40 Ceftriaxone Sodium 1000 mg/ Sodium Chloride 100 ml @ 200 mls/hr Q12H IV 06/23/17 21:00 06/23/17 21:41 Objective Remarks GENERAL: Elderly female sitting up in bed with occasional cough on exam SKIN: Warm and dry. HEAD: Normocephalic. EYES: No injection or drainage. NECK: Supple, trachea midline. CARDIOVASCULAR: Regular rate and rhythm without murmurs. RESPIRATORY: Scattered rhonchi, expiratory wheezing bilaterally GASTROINTESTINAL: Abdomen soft, non-tender, nondistended. EXTREMITIES: No cyanosis, or edema. MUSCULOSKELETAL: Adequate muscle tone. NEUROLOGICAL: No obvious focal deficit. Awake, alert, and oriented x3. Assessment/Plan Problem List: (1) Non-small cell carcinoma of lung ICD Codes: C34.90 - Malignant neoplasm of unspecified part of unspecified bronchus or lung Plan: -- Recently finished chemotherapy radiotherapy on 06/09/17 Hx/Workup: Poorly differentiated non-small cell lung cancer being treated with concurrent chemotherapy and radiation treatments. She presented to her primary care physician in January of 2017 with chest discomfort and CT scan in January revealed a mass which was pleural-based in the left upper lobe and measured 6.3- 3.2 cm. She was subsequently seen by Dr. Kishan Beltran. She also underwent a CT pulmonary angiogram to rule out any underlying pulmonary embolus. No pulmonary embolus was found. A hilar mass in the left upper lobe was visualized again. This was 5.2 x 2.2 cm mass on the CT angiogram. There were two nonspecific pulmonary nodules in the right upper lobe. There was nonspecific mediastinal adenopathy, but this was very small. She had a PET scan which confirmed a 6.2 x 2.1 cm hypermetabolic mass with an SUV of 15.7. There was also a smaller mass adjacent to the main lesions which appear to be soft tissue density it was difficult to tell whether there was encroachment into the chest wall. The patient was evaluated by Dr. Sprague in cardiac surgery and she was not a candidate for surgery due to high risk based on her age and frailty level. CT-guided biopsy proven a poorly differentiated non- small cell lung cancer which was reactive for cytokeratin AE1, AE3 and cytokeratin 7. There was partial reactivity for CK5 and CK6, napsin A and TTF- 1. 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 -- (2) Community acquired pneumonia ICD Codes: J18.9 - Pneumonia, unspecified organism Plan: -- On Vanco, Rocephin, Azithromycin -- Add Tessalon today (3) Anemia ICD Codes: D64.9 - Anemia, unspecified Plan: -- Likely due to immunosuppression from chemotherapy -- Transfuse 1 unit packed red blood cells today (4) Thrombocytopenia ICD Codes: D69.6 - Thrombocytopenia, unspecified Plan: -- Likely due to immunosuppression from chemotherapy Assessment 77-year-old female with poorly differentiated non-small cell lung cancer admitted for pneumonia Plan 1. Continue current antibiotics 2. Transfuse one unit packed red blood cells today 3. Monitor CBC 4. Add on Tessalon Perles for cough Attending Statement The exam, history, and the medical decision-making described in the above note were completed with the assistance of the mid-level provider. I reviewed and agree with the findings presented. I attest that I had a [id number] encounter with the patient on the same day, and personally performed and documented my assessment and findings in the medical record. Feels better. Still cough, needs something for sleep, try Lorazepam. Tolerating Azythromycin,no rash so far, no adverse reaction to abx. Cont current care. Renate Patiño Jun 24, 2017 10:17 Kinsey Peng MD Jun 24, 2017 12:26
[2017-06-24] MEDS: PANTOPRAZOLE SOD 20 MG DELAYED RELEASE TAB PO SCH (10:23)
[2017-06-24] MEDS: CARVEDILOL 12.5 MG TAB PO SCH ×2 (10:24→20:04)
[2017-06-24] MEDS: amLODIPine BESYLATE 5 MG TAB PO SCH (10:24)
[2017-06-24] MEDS: ASPIRIN 81 MG CHEW TAB CHEW SCH (10:24)
[2017-06-24] MEDS: CITALOPRAM HYDROBROMIDE 20 MG TAB PO SCH (10:24)
[2017-06-24] MEDS: cefTRIAXone 1,000 MG/NS 100 ML IV SCH ×4 (10:24→21:23)
[2017-06-24] MEDS: predniSONE 5 MG TAB PO SCH (10:24)
[2017-06-24] MEDS: ENOXAPARIN SODIUM 30 MG/0.3 ML SYRINGE SQ SCH (10:25)
[2017-06-24] MEDS: ALPRAZolam 0.25 MG TAB PO PRN ×2 (10:26→21:23)
[2017-06-24] MEDS: RESP: ALBUTEROL 2.5 MG/IPRATROPIUM 0.5 MG NEB (PRN) NEB (10:34)
[2017-06-24 10:38] VITALS: O2SAT 98
--- NOTE | 2017-06-24 12:02 | MH ---
cc: RUBY MARTINI DATE OF ADMISSION: 06/23/2017 ADMITTING DIAGNOSIS: The patient is being admitted with a with subjective fevers, chills, cough and was found to have community-acquired pneumonia and severe anemia. She has a history of [id number]-dzuv lung cancer. HISTORY OF PRESENT ILLNESS This is a 77-year-old female who has a past medical history of [id number] lung cancer. This is a poorly differentiated cancer which was treated with concurrent chemotherapy and radiation treatments. She received carboplatin and Taxol with dose reduction along with radiation. She had presented to her primary care physician in January 2017 with chest discomfort and CT revealed a pleural-based left upper lobe mass which was 6.3 x 3.[address] angiogram which confirmed a hilar mass in the left upper lobe. There were additional nodules in the right upper lobe with these were nonspecific a PET scan confirmed 6.2 x 2.1 cm hypermetabolic mass with MCV of 15.7. There is also small mass adjacent to the main lesions. She was evaluated by cardiac thoracic surgery. However she was not a candidate for any surgery due to her high frailty level. The patient began concurrent chemotherapy radiation treatments. She completed her treatments in early June 2017. She now presents with acute dyspnea subjective fevers, chills, cough and feeling unwell. She was found to be severely anemic due to concern for community-acquired pneumonia and sepsis. She was at a she was admitted to the hospital. She was chaves she was tachycardiac on admission. He does not have any abdominal pain. No diarrhea or constipation. She blood cultures have been drawn. Chest x-ray has been ordered and transfusion orders have been placed. REVIEW OF SYSTEMS A comprehensive review of systems was completed which is negative except as described in the HPI. PAST MEDICAL HISTORY 1. Dmf-tqqfz-kpeb lung cancer 2. history of cataracts. 3. Coronary artery disease 4. Anxiety 5. history of anemia 6. Osteoarthritis 7. Osteoporosis 8. rheumatoid arthritis 9. Scleroderma 10. Hypertension 11. lupus 12. hemorrhoids 13. thyroid disease. PAST SURGICAL HISTORY 1. Lung biopsy 2. Hysterectomy 3. cataract removal in 2012 4. Colon resection of 2012. 5. Colonoscopy in 2011 6. upper endoscopy in 1988 7. thyroidectomy 1961. 8. Tonsillectomy in 1944. ALLERGIES CODEINE DIFLUCAN LEVAQUIN OXYCODONE MEDICATIONS 1. Alendronate 1 tablet p.o. daily. 2. Amlodipine 5 mg daily. 3. Atorvastatin 20 mg daily. 4. Calcium capsules. 5. Carvedilol 25 mg p.o. b.i.d. 6. Citalopram 10 mg p.o. daily 7. CoQ 10 1 tablet daily 8. Levothyroxine 88 mcg daily. 9. Multivitamin daily 10. [place] 3 11. Fatty acids daily. 12. Omeprazole 20 mg p.o. daily. 13. Prednisone 4 mg one tablet daily. FAMILY HISTORY: Family history was reviewed on this admission and is noncontributory. SOCIAL HISTORY She has good social support. She does not smoke cigarettes. No alcohol abuse. No illicit drug use. She quit smoking many years ago. PHYSICAL EXAMINATION: VITAL SIGNS: Blood pressure is 127/64, pulse is in the 100, temperature is 98.8, O2 sats are 95% on room air. IN GENERAL: Elderly female who appears to be acutely ill with no in no apparent distress. HEAD, EYES, EARS, NOSE, AND THROAT: Pupils are equal, round to light. Extraocular muscles intact. No oral thrush. No oral lesions. NECK: Neck is supple. No JVD, no bruits. No lymphadenopathy. CARDIAC: She is tachycardiac, S1-S2 regular rate and rhythm. ABDOMEN: Abdomen is soft, nontender, nondistended. Bowel sounds are present. LUNGS: She had left-sided rhonchi of lower lobe. There is also diffuse wheezing. EXTREMITIES: Without any edema, erythema or cyanosis. SKIN: Without any petechiae lesion or bruises. NEUROLOGIC: No focal deficits. PSYCHIATRIC: Mood and affect is appropriate. LABORATORY DATA WBC 3.3, hemoglobin 7.8, MCV 85.2, platelet count is 86,000. Serum chemistries show sodium 138, potassium 3.6, chloride 101, CO2 31.4, BUN is six, creatinine is 0.46, GFR is 131. Calcium is 7.1, total protein is 5.9, INR is 1.2. IMAGING STUDIES Chest x-ray was reviewed and it shows infiltrate in the left lung base and the right upper lung. ASSESSMENT/PLAN This is a 77-year-old female with a past medical history of [id number]-[id number] lung cancer which is poorly differentiated she has undergone concurrent chemotherapy and radiation treatments. She presents with dyspnea subjective fevers, chills, cough and severe fatigue. 1. Community acquired pneumonia and sepsis. The patient is tachycardiac. Chest x-ray reveals bilateral pneumonia. She is feeling unwell. We will start antibiotic coverage with vancomycin, azithromycin and Rocephin. Blood cultures have been obtained. A chest x-ray has been reviewed. Will obtain a flu panel. We will check the urine for Legionella. She will get DuoNeb's treatment p.r.n. start Incentive spirometry. 2. Severe anemia with a symptomatic. We will transfuse her 1 unit of packed red blood cells. There does not appear to be hemolysis. We will obtain anemia studies. Check B12 folate and iron levels. Obtain a stool hemoccult to rule out any underlying GI bleeding. 3. Thrombocytopenia likely due to chemotherapy and pneumonia. Will continue to monitor. 4. Weakness and deconditioning consult physical therapy. 5. Hypoalbuminemia with a albumin of 2.6. Encourage oral intake dietitian consult. 6. DVT prophylaxis starter 9 mg Lovenox 30 Subcu daily ADDENDUM: DVT prophylaxis will start her on Lovenox 30 subcutaneous daily. Further recommendations will be made during the course of this admission the patient will likely require greater than 2 days of hospital admission. MD PERCY Smith/aylin /10:45 AM /8:23 AM
[2017-06-24] MEDS ORDERED: LORazepam 0.5 MG TAB PO PRN (12:30)
[2017-06-24] MEDS: BENZONATATE 100 MG CAP PO PRN (13:39)
[2017-06-24 15:35] VITALS: BP 116/67; PULSE 96; RESP 18; O2SAT 97
[2017-06-24 15:36] VITALS: TEMP 98.6
[2017-06-24 17:10] VITALS: BP 129/71; PULSE 85; RESP 18; TEMP 98.2; O2SAT 97
[2017-06-24 17:27] VITALS: PULSE 101
[2017-06-24 20:00] VITALS: BP 139/74; PULSE 96; PULSE 97; RESP 18; TEMP 98.7; O2SAT 95
[2017-06-24] MEDS: ATORVASTATIN 20 MG TAB PO SCH (20:04)
[2017-06-24] MEDS: AZITHROMYCIN 500 MG/NS 250 ML IV SCH ×2 (20:04)
[2017-06-25] VITALS (9 sets, daily range): BP systolic 124–154; BP diastolic 71–83; PULSE 81–100; RESP 16–19; TEMP 98–99; O2SAT 92–98
[2017-06-25] MEDS ORDERED: PHARMACY ORDERED LAB ONE (05:00)
[2017-06-25] MEDS: LEVOTHYROXINE SODIUM 88 MCG TAB PO SCH (05:20)
[2017-06-25] MEDS: VANCOMYCIN INJ 1,250 MG in SODIUM CHLOR 0.9% 250 ML INJ 250 ML IV SCH (05:21)
[2017-06-25 06:23] LABS: AUTOMATED NEUTROPHIL # 2.1 TH/MM3 (1.8-7.7); BASOPHIL % 0.5 % (0.0-2.0); EOSINOPHIL % 0.4 % (0.0-4.0); HEMATOCRIT 29.9 % (35.0-46.0); HEMO FLAGS DIFF FINAL; LYMPH % 24.7 % (9.0-44.0); LYMPHOCYTE # 0.9 TH/MM3 (1.0-4.8); MEAN CELL VOLUME 85.1 FL (80.0-100.0); MEAN CORPUSCULAR HEMOGLOBIN 29.2 PG (27.0-34.0); MEAN CORPUSCULAR HGB CONC 34.4 % (32.0-36.0); MONO % 18.4 % (0.0-8.0); PLATELET COUNT 105 TH/MM3 (150-450); RED BLOOD COUNT 3.52 MIL/MM3 (4.00-5.30); RED CELL DISTRIBUTION WIDTH 20.4 % (11.6-17.2); WHITE BLOOD COUNT 3.7 TH/MM3 (4.0-11.0)
[2017-06-25] MEDS: RESP: ALBUTEROL 2.5 MG/IPRATROPIUM 0.5 MG NEB (PRN) NEB (07:28)
[2017-06-25] MEDS: CARVEDILOL 12.5 MG TAB PO SCH ×2 (09:28→21:54)
[2017-06-25] MEDS: CITALOPRAM HYDROBROMIDE 20 MG TAB PO SCH (09:29)
[2017-06-25] MEDS: PANTOPRAZOLE SOD 20 MG DELAYED RELEASE TAB PO SCH (09:29)
[2017-06-25] MEDS: amLODIPine BESYLATE 5 MG TAB PO SCH (09:29)
[2017-06-25] MEDS: predniSONE 5 MG TAB PO SCH (09:29)
[2017-06-25] MEDS: ASPIRIN 81 MG CHEW TAB CHEW SCH (09:29)
[2017-06-25] MEDS: ENOXAPARIN SODIUM 30 MG/0.3 ML SYRINGE SQ SCH (09:30)
[2017-06-25] MEDS: cefTRIAXone 1,000 MG/NS 100 ML IV SCH ×4 (09:31→21:54)
--- NOTE | 2017-06-25 09:34 | PD.ONC.PN ---
Subjective Subjective Remarks Afebrile "I'm starting to feel better" Wants to know when she is going home Still has persistent cough, reports that this is improved Objective Data Date Time Temp Pulse Resp B/P (MAP) Pulse Ox O2 Delivery O2 Flow Rate FiO2 06/25/17 09:00 98.2 100 18 143/76 (98) 98 06/25/17 07:30 96 21 06/25/17 05:09 98.0 99 19 154/83 (106) 92 06/24/17 20:00 96 06/24/17 20:00 98.7 97 18 139/74 (95) 95 06/24/17 17:27 101 06/24/17 17:10 98.2 85 18 129/71 (90) 97 06/24/17 15:36 98.6 06/24/17 15:35 96 18 116/67 97 06/24/17 10:38 98 21 Result Diagram: 06/25/17 0510 06/24/17 0500 Laboratory Results Laboratory Tests Test 06/25/17 05:10 06/25/17 05:52 White Blood Count 3.7 TH/MM3 Red Blood Count 3.52 MIL/MM3 Hemoglobin 10.3 GM/DL Hematocrit 29.9 % Mean Corpuscular Volume 85.1 FL Mean Corpuscular Hemoglobin 29.2 PG Mean Corpuscular Hemoglobin Concent 34.4 % Red Cell Distribution Width 20.4 % Platelet Count 105 TH/MM3 Mean Platelet Volume 7.1 FL Neutrophils (%) (Auto) 56.0 % Lymphocytes (%) (Auto) 24.7 % Monocytes (%) (Auto) 18.4 % Eosinophils (%) (Auto) 0.4 % Basophils (%) (Auto) 0.5 % Neutrophils # (Auto) 2.1 TH/MM3 Lymphocytes # (Auto) 0.9 TH/MM3 Monocytes # (Auto) 0.7 TH/MM3 Eosinophils # (Auto) 0.0 TH/MM3 Basophils # (Auto) 0.0 TH/MM3 CBC Comment DIFF FINAL Differential Comment Vancomycin Level Trough 16.0 MCG/ML Culture Results Microbiology Date/Time Source Procedure Growth Status 06/23/17 17:11 Nasal Aspirate Influenza Types A,B Antigen (HEATHER) - Final NEGATIVE FOR FLU A AND B ANTIGEN.... Complete Administered Medications Medications (Trade) Dose Ordered Sig/Brenda Route PRN Reason Start Time Stop Time Status Last Admin Dose Admin Albuterol/ Ipratropium (Duoneb Neb) 1 ampule Q8HR NEB PRN NEB WHEEZING/DYSPNEA 06/23/17 16:45 06/25/17 07:28 Enoxaparin Sodium (Lovenox Inj) 30 mg DAILY SQ 06/24/17 09:00 06/24/17 10:25 Vancomycin HCl 1250 mg/Sodium Chloride 262.5 ml @ 250 mls/hr Q12H IV 06/24/17 05:00 06/25/17 05:21 Alprazolam (Xanax) 0.25 mg Q6H PRN PO ANXIETY 06/23/17 19:00 06/24/17 21:23 Amlodipine Besylate (Norvasc) 5 mg DAILY PO 06/24/17 09:00 06/24/17 10:24 Aspirin (Aspirin Chew) 81 mg DAILY CHEW 06/24/17 09:00 06/24/17 10:24 Atorvastatin Calcium (Lipitor) 20 mg HS PO 06/23/17 21:00 06/24/17 20:04 Carvedilol (Coreg) 12.5 mg BID PO 06/23/17 21:00 06/24/17 20:04 Citalopram Hydrobromide (CeleXA) 10 mg DAILY PO 06/24/17 09:00 06/24/17 10:24 Levothyroxine Sodium (Synthroid) 88 mcg DAILY@0600 PO 06/24/17 06:00 06/25/17 05:20 Prednisone (Deltasone) 5 mg DAILY PO 06/24/17 09:00 06/24/17 10:24 Pantoprazole Sodium (Protonix) 20 mg DAILY PO 06/24/17 09:00 06/24/17 10:23 Azithromycin 500 mg/Sodium Chloride 250 ml @ 250 mls/hr Q24H IV 06/23/17 20:00 06/24/17 20:04 Ceftriaxone Sodium 1000 mg/ Sodium Chloride 100 ml @ 200 mls/hr Q12H IV 06/23/17 21:00 06/24/17 21:23 Benzonatate (Tessalon) 100 mg TID PRN PO cough 06/24/17 10:15 06/24/17 13:39 Objective Remarks GENERAL: Elderly female sitting up in bed with occasional cough on exam SKIN: Warm and dry. HEAD: Normocephalic. EYES: No injection or drainage. NECK: Supple, trachea midline. CARDIOVASCULAR: Regular rate and rhythm without murmurs. RESPIRATORY: Scattered rhonchi; on room air. GASTROINTESTINAL: Abdomen soft, non-tender, nondistended. EXTREMITIES: No cyanosis, or edema. MUSCULOSKELETAL: Adequate muscle tone. NEUROLOGICAL: No obvious focal deficit. Awake, alert, and oriented x3. Assessment/Plan Problem List: (1) Non-small cell carcinoma of lung ICD Codes: C34.90 - Malignant neoplasm of unspecified part of unspecified bronchus or lung Plan: -- Recently finished chemotherapy radiotherapy on 06/09/17 Hx/Workup: Poorly differentiated non-small cell lung cancer being treated with concurrent chemotherapy and radiation treatments. She presents to her PCP over the summer 2016 with chest discomfort; CT scan revealed a mass that was pleural- based in the left upper lobe and measured 6.3 x 3.2 cm. She was then seen by Dr. Kishan christy. She underwent a CT pulmonary angiogram to rule out any underlying pulmonary embolus and this was negative. A hilar mass in the left upper lobe was visualized again. This was 5.2 x 2.2 cm mass in the CT angiogram. There were 2 nonspecific pulmonary nodules in the right upper lobe. There was also nonspecific mediastinal adenopathy however this was small. She did have a PET scan that confirmed a 6.2 x 2.1 cm hypermetabolic mass with an SUV of 15.7. The patient was evaluated by Dr. Troy CT surgery and was found to not be a candidate due to high risk based on her age and frailty. CT-guided biopsy showed a poorly differentiated non-small cell lung cancer that was reactive or cytokeratin AE1, AE3 and cytokeratin 7. 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 (2) Community acquired pneumonia ICD Codes: J18.9 - Pneumonia, unspecified organism Plan: -- Blood cultures from 06/23 show no growth 1 day -- On Vanco, Rocephin, Azithromycin (3) Anemia ICD Codes: D64.9 - Anemia, unspecified Plan: -- Likely due to immunosuppression from chemotherapy --Counts appear to be recovering (4) Thrombocytopenia ICD Codes: D69.6 - Thrombocytopenia, unspecified Plan: -- Likely due to immunosuppression from chemotherapy Assessment 77-year-old female with poorly differentiated non-small cell lung cancer admitted for pneumonia Plan 1. Patient overall feeling better; anticipate that she likely will be able to be discharged early this week 2. Cytopenias appear to be recovering 3. Monitor CBC 4. Continue breathing treatments, antibiotics Attending Statement The exam, history, and the medical decision-making described in the above note were completed with the assistance of the mid-level provider. I reviewed and agree with the findings presented. I attest that I had a [id number] encounter with the patient on the same day, and personally performed and documented my assessment and findings in the medical record. Pt seen and examined. Blood counts recover, still cough, unable to sleep because of cough, still tachycardic. Discussed her reaction to codeine, willing to try Hycodan, Tessalon Perles only mildly effective BC negative. De-escalate abx therapy. Port site looks clear. Clinically improving. Switch Azithromycin to oral. No rash. DC vancomycin. Renate Patiño Jun 25, 2017 09:34 Kinsey Peng MD Jun 25, 2017 11:57
[2017-06-25] MEDS: BENZONATATE 100 MG CAP PO PRN (09:56)
[2017-06-25] MEDS: ALPRAZolam 0.25 MG TAB PO PRN ×2 (09:56→22:32)
[2017-06-25] MEDS: AZITHROMYCIN 250 MG TAB PO SCH (13:22)
[2017-06-25] MEDS ORDERED: HYDROcodone 5 MG/HOMATROPINE 1.5 MG SYRUP 5 ML CUP PO PRN (21:00)
[2017-06-25] MEDS: ATORVASTATIN 20 MG TAB PO SCH (21:54)
[2017-06-26] VITALS (9 sets, daily range): BP systolic 108–139; BP diastolic 67–82; PULSE 70–100; RESP 16–20; TEMP 97.9–98.8; O2SAT 96–99
[2017-06-26] MEDS: SODIUM CHLORIDE 0.9% FLUSH 10 ML FLUSH IV FLUSH PRN ×3 (04:49→23:32)
[2017-06-26] MEDS: LEVOTHYROXINE SODIUM 88 MCG TAB PO SCH (05:04)
[2017-06-26 06:00] LABS: AUTOMATED NEUTROPHIL # 2.2 TH/MM3 (1.8-7.7); BASOPHIL % 0.3 % (0.0-2.0); EOSINOPHIL % 0.5 % (0.0-4.0); HEMATOCRIT 27.7 % (35.0-46.0); LYMPH % 25.1 % (9.0-44.0); MEAN CELL VOLUME 85.7 FL (80.0-100.0); MEAN CORPUSCULAR HEMOGLOBIN 30.1 PG (27.0-34.0); MEAN CORPUSCULAR HGB CONC 35.1 % (32.0-36.0); MONO % 21.2 % (0.0-8.0); NEUT % 52.9 % (16.0-70.0); PLATELET COUNT 101 TH/MM3 (150-450); RED BLOOD COUNT 3.23 MIL/MM3 (4.00-5.30); RED CELL DISTRIBUTION WIDTH 20.2 % (11.6-17.2); WHITE BLOOD COUNT 4.1 TH/MM3 (4.0-11.0)
[2017-06-26 06:09] LABS: HEMO FLAGS AUTO DIFF
[2017-06-26 08:01] LABS: OVALOCYTES 1+ (NORMAL); SCAN/DIFF AUTO DIFF CONFIRMED; TEARDROP RBCS 1+ (NORMAL); TOXIC GRANULATION 1+ (NORMAL)
[2017-06-26] MEDS: predniSONE 5 MG TAB PO SCH (09:53)
[2017-06-26] MEDS: CITALOPRAM HYDROBROMIDE 20 MG TAB PO SCH (09:53)
[2017-06-26] MEDS: ASPIRIN 81 MG CHEW TAB CHEW SCH (09:53)
[2017-06-26] MEDS: CARVEDILOL 12.5 MG TAB PO SCH ×2 (09:53→21:57)
[2017-06-26] MEDS: PANTOPRAZOLE SOD 20 MG DELAYED RELEASE TAB PO SCH (09:53)
[2017-06-26] MEDS: amLODIPine BESYLATE 5 MG TAB PO SCH (09:54)
[2017-06-26] MEDS: AZITHROMYCIN 250 MG TAB PO SCH (09:54)
[2017-06-26] MEDS: cefTRIAXone 1,000 MG/NS 100 ML IV SCH ×6 (09:54→22:51)
[2017-06-26] MEDS: ENOXAPARIN SODIUM 30 MG/0.3 ML SYRINGE SQ SCH (09:55)
--- NOTE | 2017-06-26 14:03 | PD.ONC.PN ---
Subjective Subjective Remarks Afebrile overnight. "I feel much better today." States cough is much improved. Does not feel she needs cough syrup anymore. states she only feels short of breath with exertion. Objective Data Date Time Temp Pulse Resp B/P (MAP) Pulse Ox O2 Delivery O2 Flow Rate FiO2 06/26/17 04:41 98.1 90 16 139/80 (99) 97 06/26/17 04:10 91 06/26/17 00:01 98 06/25/17 23:00 99.0 92 16 142/77 (98) 97 06/25/17 20:23 98.2 86 18 124/71 (88) 97 06/25/17 20:03 89 06/25/17 17:39 98.6 93 18 138/74 (95) 96 06/26/17 06/26/17 06/26/17 07:00 15:00 23:00 Intake Total 200 ml Balance 200 ml Result Diagram: 06/26/17 0445 06/24/17 0500 Laboratory Results Laboratory Tests Test 06/26/17 04:45 White Blood Count 4.1 TH/MM3 Red Blood Count 3.23 MIL/MM3 Hemoglobin 9.7 GM/DL Hematocrit 27.7 % Mean Corpuscular Volume 85.7 FL Mean Corpuscular Hemoglobin 30.1 PG Mean Corpuscular Hemoglobin Concent 35.1 % Red Cell Distribution Width 20.2 % Platelet Count 101 TH/MM3 Mean Platelet Volume 7.1 FL Neutrophils (%) (Auto) 52.9 % Lymphocytes (%) (Auto) 25.1 % Monocytes (%) (Auto) 21.2 % Eosinophils (%) (Auto) 0.5 % Basophils (%) (Auto) 0.3 % Neutrophils # (Auto) 2.2 TH/MM3 Lymphocytes # (Auto) 1.0 TH/MM3 Monocytes # (Auto) 0.9 TH/MM3 Eosinophils # (Auto) 0.0 TH/MM3 Basophils # (Auto) 0.0 TH/MM3 CBC Comment AUTO DIFF Differential Comment AUTO DIFF CONFIRMED Toxic Granulation 1+ Tear Drop Cells 1+ Ovalocytes 1+ Culture Results Microbiology Date/Time Source Procedure Growth Status 06/23/17 17:11 Nasal Aspirate Influenza Types A,B Antigen (HEATHER) - Final NEGATIVE FOR FLU A AND B ANTIGEN.... Complete Administered Medications Medications (Trade) Dose Ordered Sig/Brenda Route PRN Reason Start Time Stop Time Status Last Admin Dose Admin Albuterol/ Ipratropium (Duoneb Neb) 1 ampule Q8HR NEB PRN NEB WHEEZING/DYSPNEA 06/23/17 16:45 06/25/17 07:28 Enoxaparin Sodium (Lovenox Inj) 30 mg DAILY SQ 06/24/17 09:00 06/26/17 09:55 Alprazolam (Xanax) 0.25 mg Q6H PRN PO ANXIETY 06/23/17 19:00 06/25/17 22:32 Amlodipine Besylate (Norvasc) 5 mg DAILY PO 06/24/17 09:00 06/26/17 09:54 Aspirin (Aspirin Chew) 81 mg DAILY CHEW 06/24/17 09:00 06/26/17 09:53 Atorvastatin Calcium (Lipitor) 20 mg HS PO 06/23/17 21:00 06/25/17 21:54 Carvedilol (Coreg) 12.5 mg BID PO 06/23/17 21:00 06/26/17 09:53 Citalopram Hydrobromide (CeleXA) 10 mg DAILY PO 06/24/17 09:00 06/26/17 09:53 Levothyroxine Sodium (Synthroid) 88 mcg DAILY@0600 PO 06/24/17 06:00 06/26/17 05:04 Prednisone (Deltasone) 5 mg DAILY PO 06/24/17 09:00 06/26/17 09:53 Pantoprazole Sodium (Protonix) 20 mg DAILY PO 06/24/17 09:00 06/26/17 09:53 Ceftriaxone Sodium 1000 mg/ Sodium Chloride 100 ml @ 200 mls/hr Q12H IV 06/23/17 21:00 06/26/17 09:54 Benzonatate (Tessalon) 100 mg TID PRN PO cough 06/24/17 10:15 06/25/17 09:56 Azithromycin (Zithromax) 250 mg DAILY PO 06/25/17 12:00 06/26/17 09:54 Sodium Chloride (NS Flush) 5 ml UNSCH PRN IV FLUSH SEE PROTOCOL TABLE 06/25/17 23:30 06/26/17 04:49 Heparin Sodium (Porcine) (Heparin Central Flush) 250 units UNSCH PRN IV FLUSH SEE PROTOCOL TABLE 12/17/17 23:30 06/26/17 04:49 Objective Remarks GENERAL: Elderly female supine in bed in nad. SKIN: Warm and dry. HEAD: Normocephalic. EYES: No injection or drainage. NECK: Supple, trachea midline. CARDIOVASCULAR: Regular rate and rhythm RESPIRATORY: occasional rhonchi. GASTROINTESTINAL: Abdomen soft, non-tender, nondistended. EXTREMITIES: No cyanosis NEUROLOGICAL: awake and alert, normal speech. Assessment/Plan Problem List: (1) Non-small cell carcinoma of lung ICD Codes: C34.90 - Malignant neoplasm of unspecified part of unspecified bronchus or lung Plan: -- Recently finished chemotherapy radiotherapy on 06/09/17 Hx/Workup: Poorly differentiated non-small cell lung cancer being treated with concurrent chemotherapy and radiation treatments. She presents to her PCP over the summer 2016 with chest discomfort; CT scan revealed a mass that was pleural- based in the left upper lobe and measured 6.3 x 3.2 cm. She was then seen by Dr. Kishan christy. She underwent a CT pulmonary angiogram to rule out any underlying pulmonary embolus and this was negative. A hilar mass in the left upper lobe was visualized again. This was 5.2 x 2.2 cm mass in the CT angiogram. There were 2 nonspecific pulmonary nodules in the right upper lobe. There was also nonspecific mediastinal adenopathy however this was small. She did have a PET scan that confirmed a 6.2 x 2.1 cm hypermetabolic mass with an SUV of 15.7. The patient was evaluated by Dr. Troy CT surgery and was found to not be a candidate due to high risk based on her age and frailty. CT-guided biopsy showed a poorly differentiated non-small cell lung cancer that was reactive or cytokeratin AE1, AE3 and cytokeratin 7. 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 (2) Community acquired pneumonia ICD Codes: J18.9 - Pneumonia, unspecified organism Plan: -- Blood cultures from 06/23 show no growth 1 day -- On Rocephin, Azithromycin (3) Anemia ICD Codes: D64.9 - Anemia, unspecified Plan: -- Likely due to immunosuppression from chemotherapy --Counts appear to be recovering (4) Thrombocytopenia ICD Codes: D69.6 - Thrombocytopenia, unspecified Plan: -- Likely due to immunosuppression from chemotherapy Assessment 77-year-old female with poorly differentiated non-small cell lung cancer admitted for pneumonia Plan 1. will obtain respiratory walk test to ensure she does not need O2 for exertion at home. 2. monitor CBC 3. continue antibiotics. Attending Statement The exam, history, and the medical decision-making described in the above note were completed with the assistance of the mid-level provider. I reviewed and agree with the findings presented. I attest that I had a [id number] encounter with the patient on the same day, and personally performed and documented my assessment and findings in the medical record. No fevers still has cough Dyspnea on exertion Trial of steroids Nebs treatment Walk test to assess if Home o2 is needed continue Rocephin and Azithro. Anemia--Hb slightly lower Will get CTA chest to asses for PTE--dysgonic/tachycardic on exam Possible d/c to home inext 24 hours if clinically better d/w rn o/n events reviewed Beth Paniagua Jun 26, 2017 14:03 Sandip Dumont MD Jun 26, 2017 20:48
[2017-06-26] MEDS: ATORVASTATIN 20 MG TAB PO SCH (21:57)
[2017-06-26] MEDS ORDERED: IOHEXOL 350 MG/ML 10 ML VIAL (for RAD DIAG) IVCONTRAST ONE (22:44)
--- NOTE | 2017-06-26 22:58 | RADRPT ---
EXAM DATE/TIME: 06/26/2017 22:26 [facility] COMPARISON: CT PULMONARY ANGIOGRAM, March 07, 2017, 21:47. INDICATIONS : Dyspnea, evaluate for pulmonary emboli. IV CONTRAST: 73 cc Omnipaque 350 (iohexol) IV RADIATION DOSE: 22.97 CTDIvol (mGy) MEDICAL HISTORY : Cardiovascular disease. Hypertension. SURGICAL HISTORY : None. ENCOUNTER: Initial ACUITY: 1 day PAIN SCALE: 0/10 LOCATION: Bilateral chest TECHNIQUE: Volumetric scanning of the chest was performed using a pulmonary embolism protocol MIP images were re constructed. Using automated exposure control and adjustment of the mA and/or kV according to patien t size, radiation dose was kept as low as reasonably achievable to obtain optimal diagnostic quality images. DICOM format image data is available electronically for review and comparison. Follow-up recommendations for detected pulmonary nodules are based at a minimum on nodule size and pa tient risk factors according to Fleischner Society Guidelines. FINDINGS: PULMONARY ARTERIES: No filling defects are seen in the pulmonary arteries through the segmental level. LUNGS: Scattered areas of opacity in the right upper lung measuring less than 1 cm are similar in appearance [address] angiogram. There is several new masslike opacities in the left lower lung shubham uring 1.4 cm and 1.0 cm. Peripheral interstitial changes in both lungs is similar to prior. PLEURAE: Irregular margin pleural-based mass in the anterolateral left chest is similar in size and appearance to prior CT pulmonary angiogram and measures 5 x 2 cm.. MEDIASTINUM: There is good visualization of the great vessels of the middle mediastinum. No evidence of mediastin al or hilar adenopathy/mass. CONCLUSION: 1. The study is negative for pulmonary embolism. 2. Persistent irregular greater than 5 cm pleural-based mass in the anterior left mid chest, stable i ll-defined parenchymal opacities in the right upper lung and 2 new masses with irregular margin in th e left lower lung. These findings are suggestive of malignancy. Clifton Kincaid MD on June 26, 2017 at 22:52 Board Certified Radiologist. This report was verified electronically.
[2017-06-26] MEDS: ALPRAZolam 0.25 MG TAB PO PRN (23:31)
[2017-06-27 00:42] VITALS: PULSE 93
[2017-06-27 03:40] VITALS: PULSE 90
[2017-06-27] MEDS ORDERED: PHARMACY ORDERED LAB ONE (04:45)
[2017-06-27 04:55] VITALS: BP 142/78; PULSE 98; RESP 16; TEMP 99; O2SAT 95
[2017-06-27] MEDS: SODIUM CHLORIDE 0.9% FLUSH 10 ML FLUSH IV FLUSH PRN (05:09)
[2017-06-27] MEDS: LEVOTHYROXINE SODIUM 88 MCG TAB PO SCH (05:14)
[2017-06-27 05:31] LABS: AUTOMATED NEUTROPHIL # 2.3 TH/MM3 (1.8-7.7); BASOPHIL % 0.3 % (0.0-2.0); EOSINOPHIL % 0.5 % (0.0-4.0); HEMATOCRIT 27.4 % (35.0-46.0); HEMO FLAGS DIFF FINAL; LYMPH % 26.7 % (9.0-44.0); LYMPHOCYTE # 1.1 TH/MM3 (1.0-4.8); MEAN CELL VOLUME 85.9 FL (80.0-100.0); MEAN CORPUSCULAR HEMOGLOBIN 30.4 PG (27.0-34.0); MEAN CORPUSCULAR HGB CONC 35.4 % (32.0-36.0); MONO % 18.8 % (0.0-8.0); NEUT % 53.7 % (16.0-70.0); PLATELET COUNT 122 TH/MM3 (150-450); RED CELL DISTRIBUTION WIDTH 20.9 % (11.6-17.2); WHITE BLOOD COUNT 4.2 TH/MM3 (4.0-11.0)
--- NOTE | 2017-06-27 09:14 | PD.ONC.PN ---
Subjective Subjective Remarks Afebrile overnight. Patient resting in bed. Eager to go home. Passed O2 walk test yesterday--does not need home oxygen. has persistent cough but well controlled and much better than when she entered the hospital. Objective Data Date Time Temp Pulse Resp B/P (MAP) Pulse Ox O2 Delivery O2 Flow Rate FiO2 06/27/17 04:55 99.0 98 16 142/78 (99) 95 06/27/17 03:40 90 06/27/17 00:42 93 06/26/17 23:35 98.5 94 18 133/72 (92) 96 06/26/17 20:20 98.8 96 18 137/73 (94) 99 06/26/17 20:07 95 06/26/17 16:05 98.1 92 20 126/72 (90) 96 06/26/17 13:28 98.1 70 16 108/67 (81) 97 06/26/17 09:50 97.9 100 16 135/82 (99) 98 06/27/17 06/27/17 06/27/17 07:00 15:00 23:00 Intake Total 585 ml Balance 585 ml Result Diagram: 06/27/17 0500 06/24/17 0500 Laboratory Results Laboratory Tests Test 06/27/17 05:00 White Blood Count 4.2 TH/MM3 Red Blood Count 3.20 MIL/MM3 Hemoglobin 9.7 GM/DL Hematocrit 27.4 % Mean Corpuscular Volume 85.9 FL Mean Corpuscular Hemoglobin 30.4 PG Mean Corpuscular Hemoglobin Concent 35.4 % Red Cell Distribution Width 20.9 % Platelet Count 122 TH/MM3 Mean Platelet Volume 6.8 FL Neutrophils (%) (Auto) 53.7 % Lymphocytes (%) (Auto) 26.7 % Monocytes (%) (Auto) 18.8 % Eosinophils (%) (Auto) 0.5 % Basophils (%) (Auto) 0.3 % Neutrophils # (Auto) 2.3 TH/MM3 Lymphocytes # (Auto) 1.1 TH/MM3 Monocytes # (Auto) 0.8 TH/MM3 Eosinophils # (Auto) 0.0 TH/MM3 Basophils # (Auto) 0.0 TH/MM3 CBC Comment DIFF FINAL Differential Comment Vancomycin Level Trough 6.9 MCG/ML Administered Medications Medications (Trade) Dose Ordered Sig/Brenda Route PRN Reason Start Time Stop Time Status Last Admin Dose Admin Albuterol/ Ipratropium (Duoneb Neb) 1 ampule Q8HR NEB PRN NEB WHEEZING/DYSPNEA 06/23/17 16:45 06/25/17 07:28 Enoxaparin Sodium (Lovenox Inj) 30 mg DAILY SQ 06/24/17 09:00 06/26/17 09:55 Alprazolam (Xanax) 0.25 mg Q6H PRN PO ANXIETY 06/23/17 19:00 06/26/17 23:31 Amlodipine Besylate (Norvasc) 5 mg DAILY PO 06/24/17 09:00 06/26/17 09:54 Aspirin (Aspirin Chew) 81 mg DAILY CHEW 06/24/17 09:00 06/26/17 09:53 Atorvastatin Calcium (Lipitor) 20 mg HS PO 06/23/17 21:00 06/26/17 21:57 Carvedilol (Coreg) 12.5 mg BID PO 06/23/17 21:00 06/26/17 21:57 Citalopram Hydrobromide (CeleXA) 10 mg DAILY PO 06/24/17 09:00 06/26/17 09:53 Levothyroxine Sodium (Synthroid) 88 mcg DAILY@0600 PO 06/24/17 06:00 06/27/17 05:14 Prednisone (Deltasone) 5 mg DAILY PO 06/24/17 09:00 06/26/17 09:53 Pantoprazole Sodium (Protonix) 20 mg DAILY PO 06/24/17 09:00 06/26/17 09:53 Ceftriaxone Sodium 1000 mg/ Sodium Chloride 100 ml @ 200 mls/hr Q12H IV 06/23/17 21:00 06/26/17 22:51 Benzonatate (Tessalon) 100 mg TID PRN PO cough 06/24/17 10:15 06/25/17 09:56 Azithromycin (Zithromax) 250 mg DAILY PO 06/25/17 12:00 06/26/17 09:54 Sodium Chloride (NS Flush) 5 ml UNSCH PRN IV FLUSH SEE PROTOCOL TABLE 06/25/17 23:30 06/27/17 05:09 Heparin Sodium (Porcine) (Heparin Central Flush) 250 units UNSCH PRN IV FLUSH SEE PROTOCOL TABLE 06/25/17 23:30 06/27/17 05:09 Objective Remarks GENERAL: Elderly female lying in bed in nad. SKIN: Warm and dry. HEAD: Normocephalic. EYES: No injection or drainage. NECK: Supple, trachea midline. CARDIOVASCULAR: Regular rate and rhythm RESPIRATORY: mildly diminished at bases. occasional rhonchi GASTROINTESTINAL: Abdomen soft, non-tender, nondistended. EXTREMITIES: No cyanosis NEUROLOGICAL: awake and alert, normal speech. moving all extremities. Assessment/Plan Problem List: (1) Non-small cell carcinoma of lung ICD Codes: C34.90 - Malignant neoplasm of unspecified part of unspecified bronchus or lung Plan: -- Recently finished chemotherapy radiotherapy on 06/09/17 Hx/Workup: Poorly differentiated non-small cell lung cancer being treated with concurrent chemotherapy and radiation treatments. She presents to her PCP over the summer 2016 with chest discomfort; CT scan revealed a mass that was pleural- based in the left upper lobe and measured 6.3 x 3.2 cm. She was then seen by Dr. Kishan christy. She underwent a CT pulmonary angiogram to rule out any underlying pulmonary embolus and this was negative. A hilar mass in the left upper lobe was visualized again. This was 5.2 x 2.2 cm mass in the CT angiogram. There were 2 nonspecific pulmonary nodules in the right upper lobe. There was also nonspecific mediastinal adenopathy however this was small. She did have a PET scan that confirmed a 6.2 x 2.1 cm hypermetabolic mass with an SUV of 15.7. The patient was evaluated by Dr. Troy CT surgery and was found to not be a candidate due to high risk based on her age and frailty. CT-guided biopsy showed a poorly differentiated non-small cell lung cancer that was reactive or cytokeratin AE1, AE3 and cytokeratin 7. 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 (2) Community acquired pneumonia ICD Codes: J18.9 - Pneumonia, unspecified organism Plan: -- Blood cultures from 06/23 show no growth 1 day -- On Rocephin, Azithromycin (3) Anemia ICD Codes: D64.9 - Anemia, unspecified Plan: -- Likely due to immunosuppression from chemotherapy --Counts appear to be recovering (4) Thrombocytopenia ICD Codes: D69.6 - Thrombocytopenia, unspecified Plan: -- Likely due to immunosuppression from chemotherapy Assessment 77-year-old female with poorly differentiated non-small cell lung cancer admitted for pneumonia Plan 1. d/c home today 2. follow up in clinic in 1-2 weeks Attending Statement The exam, history, and the medical decision-making described in the above note were completed with the assistance of the mid-level provider. I reviewed and agree with the findings presented. I attest that I had a [id number] encounter with the patient on the same day, and personally performed and documented my assessment and findings in the medical record Beth Paniagua Jun 27, 2017 09:14 Sandip Dumont MD Jun 28, 2017 00:04
--- NOTE | 2017-06-27 09:20 | HHI.DS ---
Beth Paniagua 06/27/17 0920: Discharge Summary Admission Date Jun 23, 2017 at 14:11 Discharge Date: Jun 27, 2017 Admitting Diagnosis NSCLC, Community Acquired Pneumonia (1) Non-small cell carcinoma of lung ICD Codes: C34.90 - Malignant neoplasm of unspecified part of unspecified bronchus or lung (2) Community acquired pneumonia ICD Codes: J18.9 - Pneumonia, unspecified organism Brief History Ms. Wheeler is a 77y/o female with a diagnosis of NSCLC treated with concurrent chemotherapy and radiation. She presented to the clinic and was found to have fevers, chills cough and was promptly admitted to the hospital for CA Pneumonia. CBC/BMP: 06/27/17 0500 06/24/17 0500 Significant Findings Laboratory Tests Test 06/25/17 05:10 06/25/17 05:52 06/26/17 04:45 06/27/17 05:00 White Blood Count 3.7 TH/MM3 (4.0-11.0) Red Blood Count 3.52 MIL/MM3 (4.00-5.30) 3.23 MIL/MM3 (4.00-5.30) 3.20 MIL/MM3 (4.00-5.30) Hemoglobin 10.3 GM/DL (11.6-15.3) 9.7 GM/DL (11.6-15.3) 9.7 GM/DL (11.6-15.3) Hematocrit 29.9 % (35.0-46.0) 27.7 % (35.0-46.0) 27.4 % (35.0-46.0) Red Cell Distribution Width 20.4 % (11.6-17.2) 20.2 % (11.6-17.2) 20.9 % (11.6-17.2) Platelet Count 105 TH/MM3 (150-450) 101 TH/MM3 (150-450) 122 TH/MM3 (150-450) Monocytes (%) (Auto) 18.4 % (0.0-8.0) 21.2 % (0.0-8.0) 18.8 % (0.0-8.0) Lymphocytes # (Auto) 0.9 TH/MM3 (1.0-4.8) Vancomycin Level Trough 16.0 MCG/ML (5.0-10.0) Toxic Granulation 1+ (NORMAL) Tear Drop Cells 1+ (NORMAL) Ovalocytes 1+ (NORMAL) Mean Platelet Volume 6.8 FL (7.0-11.0) Imaging Last Impressions CT Angiography 06/26/17 0000 Signed Impressions: Service Date/Time: Monday, June 26, 2017 22:26 - CONCLUSION: 1. The study is negative for pulmonary embolism. 2. Persistent irregular greater than 5 cm pleural-based mass in the anterior left mid chest, stable ill-defined parenchymal opacities in the right upper lung and 2 new masses with irregular margin in the left lower lung. These findings are suggestive of malignancy. Clifton Kincaid MD Chest X-Ray 06/23/17 0000 Signed Impressions: Service Date/Time: Friday, June 23, 2017 16:31 - CONCLUSION: Mild infiltrate in the left lung base and right upper lung. Beto Castro MD PE at Discharge please see physical exam from progress note on date of discharge Hospital Course Ms. Wheeler presented to the clinic on 06/23/17. She was complaining of fevers, chills and cough. She was promptly admitted to the hospital. IV antibiotics were started including Rocephin and Zithromax. Home medications were resumed. Labs were checked daily. On the patient was given one unit pRBC for a hemoglobin of 8mg/dL. Over the course of her hospitalization her symptoms of cough and fever improved. She is being discharged home on PO antibiotics in good condition with instructions for follow up. Pt Condition on Discharge: Good Discharge Disposition: Discharge Home Discharge Instructions DIET: Follow Instructions for: As Tolerated, No Restrictions Activities you can perform: Regular-No Restrictions Sandip Dumont MD 06/28/17 0005: Discharge Summary CBC/BMP: 06/27/17 0500 06/24/17 0500 Discharge Instructions Additional Information The exam, history, and the medical decision-making described in the above note were completed with the assistance of the mid-level provider. I reviewed and agree with the findings presented. I attest that I had a [id number] encounter with the patient on the same day, and personally performed and documented my assessment and findings in the medical record Beth Paniagua Jun 27, 2017 09:20 Sandip Dumont MD Jun 28, 2017 00:05
--- NOTE | 2017-06-27 09:21 | HHI.DCPOC ---
Discharge Care Plan Diagnosis: (1) Community acquired pneumonia (2) Non-small cell carcinoma of lung Goals to Promote Your Health * To prevent worsening of your condition and complications * To maintain your health at the optimal level Directions to Meet Your Goals Take your medications as prescribed Follow your dietary instruction Follow activity as directed Keep your appointments as scheduled Take your immunizations and boosters as scheduled If your symptoms worsen call your PCP, if no PCP go to Urgent Care Center or Emergency Room Smoking is Dangerous to Your Health. Avoid second hand smoke Call the 24-hour hour crisis hotline for domestic abuse at Beth Paniagua Jun 27, 2017 09:21 Sandip Dumont MD Jun 28, 2017 00:05
[2017-06-27 10:00] VITALS: BP 137/73; PULSE 96; RESP 16; TEMP 98.1
[2017-06-27] MEDS: cefTRIAXone 1,000 MG/NS 100 ML IV SCH ×2 (10:06)
[2017-06-27] MEDS: CARVEDILOL 12.5 MG TAB PO SCH (10:07)
[2017-06-27] MEDS: CITALOPRAM HYDROBROMIDE 20 MG TAB PO SCH (10:07)
[2017-06-27] MEDS: amLODIPine BESYLATE 5 MG TAB PO SCH (10:07)
[2017-06-27] MEDS: predniSONE 5 MG TAB PO SCH (10:08)
[2017-06-27] MEDS: AZITHROMYCIN 250 MG TAB PO SCH (10:08)
[2017-06-27] MEDS: PANTOPRAZOLE SOD 20 MG DELAYED RELEASE TAB PO SCH (10:08)
[2017-06-27] MEDS: ASPIRIN 81 MG CHEW TAB CHEW SCH (10:08)
[2017-06-27] MEDS: ENOXAPARIN SODIUM 30 MG/0.3 ML SYRINGE SQ SCH (10:09)
[2017-06-27] MEDS ORDERED: AZIT250T3 PO (12:51)
== END 2017-06-27 14:00 | disposition home or self-care (01) | DRG 871 ==
LOC: HCIN 14:11
PROVIDERS: ADMIT Internal Medicine; ATTEND Internal Medicine
PROC: 30233N1 Transfusion of Nonautologous Red Blood Cells into Peripheral Vein, Percutaneous Approach (ICD-10-PCS; principal; 2017-06-24)
DX: A41.9 Sepsis, unspecified organism (principal); J18.9 Pneumonia, unspecified organism; D69.59 Other secondary thrombocytopenia; D64.9 Anemia, unspecified; C34.12 Malignant neoplasm of upper lobe, left bronchus or lung; E88.09 Other disorders of plasma-protein metabolism, not elsewhere classified; I10 Essential (primary) hypertension; M06.9 Rheumatoid arthritis, unspecified; F41.9 Anxiety disorder, unspecified; I25.10 Atherosclerotic heart disease of native coronary artery without angina pectoris; M19.90 Unspecified osteoarthritis, unspecified site; E07.9 Disorder of thyroid, unspecified; R00.0 Tachycardia, unspecified; Z92.21 Personal history of antineoplastic chemotherapy; Z87.891 Personal history of nicotine dependence
CPT/HCPCS: 36430; 71020; 71275; 80048; 80053; 80202; 83880; 84155; 85007; 85025; 85027; 85384; 85610; 85730; 86850; 86900; 86901; 86920; 87804; 94620; 94640; 94664; J0456; J0696; J1642; J1650; J3370; J7040; J7050; J7512; P9016; Q9967

== ENCOUNTER 2017-10-15 11:23 | Observation (INO) | payer MEDICARE ==
[~2017-10-15] VITALS: Ht 160 cm; Wt 68.0 kg
[~2017-10-15 11:23] MED LIST changes: +AZIT250T3 PO
[2017-10-15 11:26] VITALS: BP 140/67; PULSE 89; RESP 18; TEMP 98.1; O2SAT 95
[2017-10-15] MEDS ORDERED: MORP1TAB24 PO (13:15)
[2017-10-15] MEDS ORDERED: MORPHINE SULFATE 15 MG TAB PO ONE (13:30)
[2017-10-15] MEDS ORDERED: ALPRAZolam 0.25 MG TAB PO ONE (13:30)
[2017-10-15] MEDS ORDERED: SODIUM CHLOR 0.9% 1000 ML INJ 1,000 ML IV ONE (13:30)
[2017-10-15] MEDS ORDERED: ONDANSETRON HCL 4 MG/2 ML VIAL IV ONE (13:30)
[2017-10-15 14:01] LABS: AUTOMATED NEUTROPHIL # 8.8 TH/MM3 (1.8-7.7); BASOPHIL % 0.3 % (0.0-2.0); EOSINOPHIL # 0.2 TH/MM3 (0-0.4); EOSINOPHIL % 1.5 % (0.0-4.0); HEMATOCRIT 31.3 % (35.0-46.0); HEMOGLOBIN 10.6 GM/DL (11.6-15.3); LYMPH % 9.6 % (9.0-44.0); LYMPHOCYTE # 1.1 TH/MM3 (1.0-4.8); MEAN CELL VOLUME 82.9 FL (80.0-100.0); MEAN CORPUSCULAR HGB CONC 33.8 % (32.0-36.0); MEAN PLATELET VOLUME 6.9 FL (7.0-11.0); MONO % 12.5 % (0.0-8.0); MONOCYTE # 1.4 TH/MM3 (0-0.9); NEUT % 76.1 % (16.0-70.0); PLATELET COUNT 226 TH/MM3 (150-450); RED BLOOD COUNT 3.78 MIL/MM3 (4.00-5.30); RED CELL DISTRIBUTION WIDTH 13.6 % (11.6-17.2); WHITE BLOOD COUNT 11.5 TH/MM3 (4.0-11.0)
--- NOTE | 2017-10-15 14:13 | PD ---
HPI Chief Complaint: GI Complaint Time Seen by Provider: 13:11 Travel History International Travel<30 days: No Contact w/Intl Traveler<30days: No Traveled to known affect area: No History of Present Illness HPI This is a 77-year-old woman who presents to the emergency department complaining of nausea vomiting and heaving starting this morning. She woke up with left wrist pain with some pain redness and swelling. She states that she took her alendronate which is normal for her. After that she started getting nausea vomiting and some heaving. States this happened her one time in the past after taking alendronate. She continued pain in the left wrist. She did not take any of her medications this morning because she was heaving. She is on morphine and Xanax. She has known T9 compression fracture. She also has a history of non-small lung CA treated with chemoradiation. She has residual nodules in her lung that either represent residual disease or scarring, they are monitoring these. She also has a history of rheumatoid arthritis, she is on methotrexate and steroids. She has not had similar symptoms to this with her rheumatoid arthritis in the past. History Past Medical History Narrative Medical Non-small cell lung CA, status post chemoradiation, questionable residual disease T9 compression fracture, on chronic opiates T9 compression fracture, on chronic opiates RA, on methotrexate and steroids Tetanus Vaccination: > 5 Years Influenza Vaccination: Yes Menopausal: Yes : 4 Para: 4 Social History Alcohol Use: No Tobacco Use: No (quit 45 years ago ) Allergies-Medications (Allergen,Severity, Reaction): Coded Allergies: clarithromycin (Verified Allergy, Intermediate, RASH, 10/15/17) fluconazole (Verified Allergy, Intermediate, RASH, 10/15/17) leflunomide (Verified Allergy, Intermediate, RASH, 10/15/17) levofloxacin (Verified Allergy, Intermediate, RASH, 10/15/17) ciprofloxacin (Verified Adverse Reaction, Intermediate, nausea, 04/20/17) codeine (Verified Adverse Reaction, Mild, Nausea/Vomiting, 10/15/17) vomited after taking once Reported Meds & Prescriptions Reported Meds & Active Scripts Active Reported Morphine ER (Morphine Sulfate) 15 Mg Tab 15 Mg PO Q6HR Vitamin A and D (Vitamins A and D) 1 Each Capsule 5,000 Units PO DAILY Dumas 3 1000 mg (Dumas-3 Fatty Acids) 300 Mg-1,000 Mg Cap 1 Tab PO DAILY Alprazolam 0.25 Mg Tab 0.25 Mg PO Q6H PRN Alendronate (Alendronate Sodium) 70 Mg Tab 70 Mg PO Q7D Levothyroxine (Levothyroxine Sodium) 88 Mcg Tab 88 Mcg PO DAILY Prilosec (Omeprazole Magnesium) 20 Mg Tab 1 Tab PO DAILY Coq10 (Coenzyme Q10 (Ubidecarenone)) 50 Mg Cap 150 Cap PO DAILY Carvedilol 12.5 Mg Tab 12.5 Mg PO BID Calcium 500 +D (Calcium Carbonate-Cholecalciferol) 500-400 Mg-Unit Tab 1 Tab PO BID Lipitor (Atorvastatin Calcium) 20 Mg Tab 20 Mg PO HS Aspirin 81 Mg Chew 81 Mg CHEW DAILY Vitamin C ER (Ascorbic Acid) 500 Mg Octaviano 500 Mg PO DAILY Norvasc (Amlodipine Besylate) 5 Mg Tab 4 Mg PO DAILY Citalopram (Citalopram Hydrobromide) 10 Mg Tab 10 Mg PO DAILY Prednisone 5 Mg Tab 4 Mg PO DAILY Review of Systems Except as stated in HPI: all other systems reviewed are Neg Physical Exam Narrative GENERAL: 77-year-old woman, generally well-appearing, no acute distress. No retching now. SKIN: Focused skin assessment warm/dry. HEAD: Atraumatic. Normocephalic. EYES: Pupils equal and round. No scleral icterus. No injection or drainage. ENT: No nasal bleeding or discharge. Mucous membranes pink and moist. NECK: Trachea midline. No JVD. CARDIOVASCULAR: Regular rate and rhythm. No murmur appreciated. RESPIRATORY: No accessory muscle use. Clear to auscultation. Breath sounds equal bilaterally. GASTROINTESTINAL: Abdomen soft, non-tender, nondistended. Hepatic and splenic margins not palpable. MUSCULOSKELETAL: No obvious deformities. There is some faint erythema and swelling to the left wrist. She is pretty preserved range of motion with no micromotion tenderness or significant pain. Distally hand neurovascularly intact. NEUROLOGICAL: Awake and alert. No obvious cranial nerve deficits. Motor grossly within normal limits. Normal speech. PSYCHIATRIC: Appropriate mood and affect; insight and judgment normal. Data Data Last Documented VS Vital Signs Date Time Temp Pulse Resp B/P (MAP) Pulse Ox O2 Delivery O2 Flow Rate FiO2 10/15/17 17:30 98.4 80 15 142/61 (88) 96 Room Air Orders Orders Wrist, Complete ([id number]) (10/15/17 ) Complete Blood Count With Diff (10/15/17 13:26) Comprehensive Metabolic Panel (10/15/17 13:26) Westergren Sedimentation Rate (10/15/17 13:26) C-Reactive Protein (Crp) (10/15/17 13:26) Iv Access Insert/Monitor (10/15/17 13:26) Sodium Chlor 0.9% 1000 Ml Inj (Ns 1000 M (10/15/17 13:30) Ondansetron Inj (Zofran Inj) (10/15/17 13:30) Alprazolam (Xanax) (10/15/17 13:30) Morphine Ir (Msir) (10/15/17 13:30) Mri Joint Wrist W&W/O Contrast (10/15/17 ) Gadodiamide Pf Inj (Omniscan Pf Inj) (10/15/17 17:10) Diet Regular Basic (10/15/17 Dinner) Admit Order (Ed Use Only) (10/15/17 ) Labs Laboratory Tests Test 10/15/17 13:30 White Blood Count 11.5 TH/MM3 Red Blood Count 3.78 MIL/MM3 Hemoglobin 10.6 GM/DL Hematocrit 31.3 % Mean Corpuscular Volume 82.9 FL Mean Corpuscular Hemoglobin 28.0 PG Mean Corpuscular Hemoglobin Concent 33.8 % Red Cell Distribution Width 13.6 % Platelet Count 226 TH/MM3 Mean Platelet Volume 6.9 FL Neutrophils (%) (Auto) 76.1 % Lymphocytes (%) (Auto) 9.6 % Monocytes (%) (Auto) 12.5 % Eosinophils (%) (Auto) 1.5 % Basophils (%) (Auto) 0.3 % Neutrophils # (Auto) 8.8 TH/MM3 Lymphocytes # (Auto) 1.1 TH/MM3 Monocytes # (Auto) 1.4 TH/MM3 Eosinophils # (Auto) 0.2 TH/MM3 Basophils # (Auto) 0.0 TH/MM3 CBC Comment DIFF FINAL Differential Comment Erythrocyte Sedimentation Rate 53 mm/hr Blood Urea Nitrogen 13 MG/DL Creatinine 0.59 MG/DL Random Glucose 121 MG/DL Total Protein 6.6 GM/DL Albumin 2.7 GM/DL Calcium Level 7.9 MG/DL Alkaline Phosphatase 67 U/L Aspartate Amino Transf (AST/SGOT) 10 U/L Alanine Aminotransferase (ALT/SGPT) 10 U/L Total Bilirubin 0.7 MG/DL Sodium Level 136 MEQ/L Potassium Level 3.3 MEQ/L Chloride Level 101 MEQ/L Carbon Dioxide Level 28.1 MEQ/L Anion Gap 7 MEQ/L Estimat Glomerular Filtration Rate 98 ML/MIN C-Reactive Protein 5.80 MG/DL MDM Medical Decision Making Medical Screen Exam Complete: Yes Emergency Medical Condition: Yes Interpretation(s) LABS: CBC is remarkable for mild anemia. ESR 53 CMP is unremarkable. CRP 5.8 Wrist MRI: Moderate severity generalized carpal effusion and synovitis. Mild tenosynovitis. Nonspecific likely inflammatory, possibly infectious. Differential Diagnosis Inflammatory arthritis, septic arthritis, infection, sepsis, adverse effect of alendronate, other Narrative Course Medical decision making INITIAL: 77-year-old woman, here for retching to seems to be related to the alendronate use, and also when I believe to be inflammatory arthritis of the left wrist. She is on immune suppression increasing her risk of infection. She does have pretty preserved range of motion of the wrist. Will check some inflammatory markers, white count, x-ray, reassess. FINAL: Inflammatory markers are elevated. 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 Patient is on immunosuppressive's. Spoke with Dr. Amauri solomon, recommended MRI to evaluate for effusion. Effusion is present. I think patient would benefit from joint aspiration. We will plan on admission for observation, joint aspiration, orthopedic consultation. Diagnosis Primary Impression: Monoarticular arthritis Admitting Information Admitting Physician Requests: Observation Bismark Martinez MD Oct 15, 2017 14:13
--- NOTE | 2017-10-15 14:22 | RADRPT ---
EXAM DATE/TIME: 10/15/2017 13:51 [facility] COMPARISON: No previous studies available for comparison. INDICATIONS : Left wrist pain, no injury. MEDICAL HISTORY : Cardiovascular disease. Hypertension Myocardial infarction. SURGICAL HISTORY : Hysterectomy. Colon resection. ENCOUNTER: Initial ACUITY: 3 days PAIN SCORE: 5/10 LOCATION: Left wrist FINDINGS: There is moderate osteoarthritis of the first carpometacarpal joint. No acute fracture or dislocation . No bony destructive changes are present. CONCLUSION: 1. Moderate osteoarthritis of the first carpometacarpal joint with soft tissue swelling. No acute bon y abnormality. Nain Hancock MD on October 15, 2017 at 14:17 Board Certified Radiologist. This report was verified electronically.
[2017-10-15 14:25] LABS: ALBUMIN 2.7 GM/DL (3.4-5.0); ALT (GPT) 10 U/L (10-53); AST (GOT) 10 U/L (15-37); BICARBONATE 28.1 MEQ/L (21.0-32.0); BLOOD UREA NITROGEN 13 MG/DL (7-18); CALCIUM 7.9 MG/DL (8.5-10.1); CHLORIDE 101 MEQ/L (98-107); CREATININE 0.59 MG/DL (0.50-1.00); GLOMERULAR FILTRATION RATE 98 ML/MIN (>89); GLUCOSE,RANDOM 121 MG/DL (74-106); SODIUM (NA) 136 MEQ/L (136-145)
[2017-10-15 14:28] LABS: ALKALINE PHOSPHATASE 67 U/L (45-117); TOTAL BILIRUBIN ADULT 0.7 MG/DL (0.2-1.0); TOTAL PROTEIN 6.6 GM/DL (6.4-8.2)
[2017-10-15 14:57] VITALS: BP 175/77; PULSE 89; RESP 17; TEMP 99; O2SAT 98
[2017-10-15] MEDS ORDERED: GADODIAMIDE PF 287 MG/ML 20 ML VIAL (for RAD MRI) IVCONTRAST ONE (17:10)
[2017-10-15 17:30] VITALS: BP 142/61; PULSE 80; RESP 15; TEMP 98.4; O2SAT 96
--- NOTE | 2017-10-15 17:42 | RADRPT ---
EXAM DATE/TIME: 10/15/2017 16:32 [facility] COMPARISON: No previous studies available for comparison. INDICATIONS : Pain, redness, swelling. Evaluate for septic arthritis. CONTRAST: 14 cc Omniscan (gadodiamide) IV MEDICAL HISTORY : Hypertension. Carcinoma, lung. SURGICAL HISTORY : Colon resection. Thyroidectomy. ENCOUNTER: Initial ACUITY: 1 day PAIN SCORE: 4/10 LOCATION: Left wrist. TECHNIQUE: Multiplanar multisequence MRI examination of the wrist was performed with and without contrast. FINDINGS: Moderate carpal effusion with moderate synovitis present. There is also mild tenosynovitis diffusely of the flexor and extensor tendons. There is non-masslike, reactive appearing enhancement. Mild anteriorly generalized carpal and carpal metacarpal joint space narrowing/chondral thinning. Mor e advanced osteoarthritis seen of the first carpometacarpal joint. No fractures or subluxations are d emonstrated. No bone destruction or signal changes of osteomyelitis. CONCLUSION: Moderate severity, generalized carpal effusion and synovitis. Also mild tenosynovitis diffusely of th e flexor and extensor tendons. These findings are nonspecific but would most likely be inflammatory. Infectious etiology not excludable. No abscess. No osteomyelitis. Ric Deutsch MD on October 15, 2017 at 17:37 Board Certified Radiologist. This report was verified electronically.
[2017-10-15 19:06] VITALS: BP 132/60; PULSE 76; RESP 16; O2SAT 97
[2017-10-15] MEDS: SODIUM CHLOR 0.9% 1000 ML INJ 1,000 ML IV SCH (19:06)
[2017-10-15] MEDS ORDERED: BISACODYL 10 MG SUPP RECTAL PRN (19:15)
[2017-10-15] MEDS ORDERED: ONDANSETRON HCL 4 MG/2 ML VIAL IVP PRN (19:15)
[2017-10-15] MEDS ORDERED: SODIUM CHLORIDE 0.9% FLUSH 10 ML FLUSH IV FLUSH PRN (19:15)
[2017-10-15] MEDS ORDERED: SENNOSIDES 8.6 MG TAB PO PRN (19:15)
[2017-10-15] MEDS ORDERED: ALPRAZolam 0.25 MG TAB PO PRN (19:15)
[2017-10-15] MEDS ORDERED: LACTULOSE SYRUP 20 GM/30 ML CUP PO PRN (19:15)
[2017-10-15] MEDS ORDERED: MORPHINE SULFATE 2 MG/ML SYRINGE IV PUSH PRN (19:15)
[2017-10-15] MEDS ORDERED: MAGNESIUM HYDROXIDE SUSP 30 ML CUP PO PRN (19:15)
[2017-10-15] MEDS ORDERED: ACETAMINOPHEN 325 MG TAB PO PRN (19:15)
--- NOTE | 2017-10-15 19:18 | HHI.HP ---
[facility] Wolf Martinez M.D. Admission Diagnosis Diagnoses: (1) Inflammatory arthritis Diagnosis: Principal (2) Wrist pain, left Diagnosis: Principal (3) Leukocytosis Diagnosis: Principal Travel History International Travel<30 Days: No Contact w/Intl Traveler <30 Da: No Traveled to Known Affected Are: No History of Present Illness This is a 77-year-old female with a PMH of Non-small Cell Lung CA s/p Chemo/ Radiation, T-Spine CxFx, Chronic Pain, Rheumatoid Arthritis on Methotrexate and Chronic Steroid Therapy who initially presented to the ER w/ complaints of nausea/vomiting after taking her Alendronate today. States she had similar symptoms last week after taking it. Also reports left wrist pain w/ some swelling/erythema x2 days. States pain worse today, constant, moderate-severe, 6-7/20, worse w/ movement, wearing brace helps. Denies fever or chills. On arrival, BP 175/77, HR 89, O2 sat 98% RA, Type 99.0. WBC 11.5. Chemistry essentially unremarkable. Wrist X-ray with moderate osteoarthritis of first carpometacarpal joint with soft tissue swelling, no acute bony abnormality. Dr. Mclean w/ IR consulted for joint aspiration, recommended MRI Wrist w/ aspiration and Ortho eval in am. Review of Systems Except as stated in HPI: all other systems reviewed are Neg ROS: 14 point review of systems otherwise negative. Past Family Social History Past Medical History PMH: Non-small Cell Lung CA s/p Chemo/Radiation, T-Spine CxFx, Chronic Pain, Rheumatoid Arthritis on Methotrexate and Chronic Steroid Therapy Past Surgical History PAST SURGICAL HISTORY: Cataract Surgery, Tonsillectomy, Cardiac Stent, Salpingo- oophorectomy, Thyroidectomy Allergies: Coded Allergies: clarithromycin (Verified Allergy, Intermediate, RASH, 10/15/17) fluconazole (Verified Allergy, Intermediate, RASH, 10/15/17) leflunomide (Verified Allergy, Intermediate, RASH, 10/15/17) levofloxacin (Verified Allergy, Intermediate, RASH, 10/15/17) ciprofloxacin (Verified Adverse Reaction, Intermediate, nausea, 04/20/17) codeine (Verified Adverse Reaction, Mild, Nausea/Vomiting, 10/15/17) vomited after taking once Physical Exam Vital Signs Vital Signs Date Time Temp Pulse Resp B/P (MAP) Pulse Ox O2 Delivery O2 Flow Rate FiO2 10/15/17 17:30 98.4 80 15 142/61 (88) 96 Room Air 10/15/17 14:57 99.0 89 17 175/77 (109) 98 Room Air 10/15/17 14:40 17 10/15/17 13:16 18 10/15/17 11:26 98.1 89 18 140/67 (91) 95 Physical Exam GENERAL: This is a well-nourished, well-developed patient, in no apparent distress. SKIN: No rashes, ecchymoses or lesions. Cool and dry. HEAD: Atraumatic. Normocephalic. No temporal or scalp tenderness. EYES: Pupils equal round and reactive. Extraocular motions intact. No scleral icterus. No injection or drainage. ENT: Nose without bleeding, purulent drainage or septal hematoma. Throat without erythema, tonsillar hypertrophy or exudate. Uvula midline. Airway patent. NECK: Trachea midline. No JVD or lymphadenopathy. Supple, nontender, no meningeal signs. CARDIOVASCULAR: Regular rate and rhythm without murmurs, gallops, or rubs. RESPIRATORY: Clear to auscultation. Breath sounds equal bilaterally. No wheezes , rales, or rhonchi. GASTROINTESTINAL: Abdomen soft, non-tender, nondistended. No hepato-splenomegaly , or palpable masses. No guarding. MUSCULOSKELETAL: Extremities without clubbing, cyanosis, or edema. No joint tenderness, effusion, or edema noted. No calf tenderness. Negative Homans sign bilaterally. NEUROLOGICAL: Awake and alert. Cranial nerves II through XII intact. Motor and sensory grossly within normal limits. Five out of 5 muscle strength in all muscle groups. Normal speech. Laboratory Laboratory Tests Test 10/15/17 13:30 White Blood Count 11.5 Red Blood Count 3.78 Hemoglobin 10.6 Hematocrit 31.3 Mean Corpuscular Volume 82.9 Mean Corpuscular Hemoglobin 28.0 Mean Corpuscular Hemoglobin Concent 33.8 Red Cell Distribution Width 13.6 Platelet Count 226 Mean Platelet Volume 6.9 Neutrophils (%) (Auto) 76.1 Lymphocytes (%) (Auto) 9.6 Monocytes (%) (Auto) 12.5 Eosinophils (%) (Auto) 1.5 Basophils (%) (Auto) 0.3 Neutrophils # (Auto) 8.8 Lymphocytes # (Auto) 1.1 Monocytes # (Auto) 1.4 Eosinophils # (Auto) 0.2 Basophils # (Auto) 0.0 CBC Comment DIFF FINAL Differential Comment Erythrocyte Sedimentation Rate 53 Blood Urea Nitrogen 13 Creatinine 0.59 Random Glucose 121 Total Protein 6.6 Albumin 2.7 Calcium Level 7.9 Alkaline Phosphatase 67 Aspartate Amino Transf (AST/SGOT) 10 Alanine Aminotransferase (ALT/SGPT) 10 Total Bilirubin 0.7 Sodium Level 136 Potassium Level 3.3 Chloride Level 101 Carbon Dioxide Level 28.1 Anion Gap 7 Estimat Glomerular Filtration Rate 98 C-Reactive Protein 5.80 Result Diagram: 10/15/17 1330 10/15/17 1330 Caprini VTE Risk Assessment Caprini VTE Risk Assessment: No/Low Risk (score <= 1) Caprini Risk Assessment Model Point Value = 1 Point Value = 2 Point Value = 3 Point Value = 5 Age 41-60 Minor surgery BMI > 25 kg/m2 Swollen legs Varicose veins or History of unexplained or recurrent spontaneous Oral contraceptives or hormone replacement Sepsis (< 1 month) Serious lung disease, including pneumonia (< 1 month) Abnormal pulmonary function Acute myocardial infarction Congestive heart failure (< 1 month) History of inflammatory bowel disease Medical patient at bed rest Age 61-74 Arthroscopic surgery Major open surgery (> 45 min) Laparoscopic surgery (> 45 min) Malignancy Confined to bed (> 72 hours) Immobilizing plaster cast Central venous access Age >= 75 History of VTE Family history of VTE Factor V Leiden Prothrombin [id number] Lupus anticoagulant Anticardiolipin antibodies Elevated serum homocysteine Heparin-induced thrombocytopenia Other congenital or acquired thrombophilia Stroke (< 1 month) Elective arthroplasty Hip, pelvis, or leg fracture Acute spinal cord injury (< 1 month) Prophylaxis Regimen Total Risk Factor Score Risk Level Prophylaxis Regimen 0-1 Low Early ambulation 2 Moderate Order ONE of the following: *Sequential Compression Device (SCD) *Heparin 5000 units SQ BID 3-4 Higher Order ONE of the following medications: *Heparin 5000 units SQ TID *Enoxaparin/Lovenox 40 mg SQ daily (WT < 150 kg, CrCl > 30 mL/min) *Enoxaparin/Lovenox 30 mg SQ daily (WT < 150 kg, CrCl > 10-29 mL/min) *Enoxaparin/Lovenox 30 mg SQ BID (WT < 150 kg, CrCl > 30 mL/min) AND/OR *Sequential Compression Device (SCD) 5 or more Highest Order ONE of the following medications: *Heparin 5000 units SQ TID (Preferred with Epidurals) *Enoxaparin/Lovenox 40 mg SQ daily (WT < 150 kg, CrCl > 30 mL/min) *Enoxaparin/Lovenox 30 mg SQ daily (WT < 150 kg, CrCl > 10-29 mL/min) *Enoxaparin/Lovenox 30 mg SQ BID (WT < 150 kg, CrCl > 30 mL/min) AND *Sequential Compression Device (SCD) Assessment and Plan Problem List: (1) Inflammatory arthritis ICD Code: M19.90 - Unspecified osteoarthritis, unspecified site (2) Wrist pain, left ICD Code: M25.532 - Pain in left wrist (3) Leukocytosis ICD Code: D72.829 - Elevated white blood cell count, unspecified Assessment and Plan A/P: 1. Inflammatory Arthritis: h/o Rheumatoid Arthritis on chronic steroids and Methotrexate, now w/ erythema and joint effusion of left wrist, possibly inflammatory/septic arthritis. Will admit for Observation, Consult IR for joint aspiration, check Fluid Cell Count & Diff, Fluid Gram Stain, Fluid Crystals. Check CRP/ESR. Will hold off on antibiotics at this time until aspiration. Will Consult Ortho for further eval. 2. Wrist Pain: Left, w/ associated erythema/edema, likely secondary to above. Wrist X-ray w/ moderate osteoarthritis of first carpometacarpal joint with soft tissue swelling, no acute bony abnormality. Wrist MRI with moderate severity, generalized carpal effusion and synovitis, also mild tenosynovitis diffusely of the flexor and extensor tendons, likely inflammatory however infectious etiology not excluded. No evidence of osteomyelitis, images reviewed by me. Continue w/ home MS IR, MS IV as needed. 3. Leukocytosis: WBC 11, likely secondary to chronic steroids w/ acute inflammatory process. Will monitor closely, repeat labs in am. 4. DVT Prophylaxis: SCD/Teds 5. Social work for d/c planning as needed. 6. Case discussed w/ ER physician at length. Meenakshi Yang MD Oct 15, 2017 19:18
[2017-10-15] MEDS ORDERED: predniSONE 5 MG/5 ML CUP PO ONE (19:45)
[2017-10-15] MEDS ORDERED: PILL SPLITTER OTHER PRN (19:45)
[2017-10-15] MEDS: DOCUSATE SODIUM 50 MG/SENNA 8.6 MG TAB PO SCH (21:00)
[2017-10-15] MEDS ORDERED: CARVEDILOL 12.5 MG TAB PO SCH (21:00)
[2017-10-15 23:41] VITALS: BP 159/73; PULSE 88; RESP 18; TEMP 98; O2SAT 90
[2017-10-16] MEDS: SODIUM CHLORIDE 0.9% FLUSH 10 ML FLUSH IV FLUSH SCH ×3 (02:00→21:00)
[2017-10-16] MEDS: MORPHINE SULFATE 15 MG CONTROLLED RELEASE TAB PO SCH ×4 (02:01→18:58)
[2017-10-16] MEDS: ATORVASTATIN 20 MG TAB PO SCH ×2 (02:01→22:11)
[2017-10-16] MEDS: LEVOTHYROXINE SODIUM 88 MCG TAB PO SCH (06:38)
[2017-10-16 07:25] VITALS: BP 121/60; PULSE 79; RESP 16; TEMP 97.6; O2SAT 95
[2017-10-16] MEDS: DOCUSATE SODIUM 50 MG/SENNA 8.6 MG TAB PO SCH ×2 (08:55→22:12)
[2017-10-16] MEDS ORDERED: FATTY ACIDS PO SCH (09:00)
[2017-10-16] MEDS ORDERED: CITALOPRAM HYDROBROMIDE 20 MG TAB PO SCH (09:00)
[2017-10-16] MEDS ORDERED: OMEGA PO SCH (09:00)
[2017-10-16] MEDS ORDERED: amLODIPine BESYLATE 5 MG TAB PO SCH (09:00)
[2017-10-16 09:37] LABS: AUTOMATED NEUTROPHIL # 7.6 TH/MM3 (1.8-7.7); BASOPHIL % 0.4 % (0.0-2.0); EOSINOPHIL % 0.4 % (0.0-4.0); HEMATOCRIT 28.9 % (35.0-46.0); HEMOGLOBIN 9.9 GM/DL (11.6-15.3); LYMPHOCYTE # 0.9 TH/MM3 (1.0-4.8); MEAN CELL VOLUME 81.9 FL (80.0-100.0); MEAN CORPUSCULAR HGB CONC 34.2 % (32.0-36.0); MEAN PLATELET VOLUME 6.9 FL (7.0-11.0); MONO % 9.5 % (0.0-8.0); MONOCYTE # 0.9 TH/MM3 (0-0.9); NEUT % 79.7 % (16.0-70.0); PLATELET COUNT 196 TH/MM3 (150-450); RED BLOOD COUNT 3.53 MIL/MM3 (4.00-5.30); RED CELL DISTRIBUTION WIDTH 13.3 % (11.6-17.2); WHITE BLOOD COUNT 9.5 TH/MM3 (4.0-11.0)
[2017-10-16 09:52] LABS: ALBUMIN 2.5 GM/DL (3.4-5.0); AST (GOT) 10 U/L (15-37); BICARBONATE 29.3 MEQ/L (21.0-32.0); BLOOD UREA NITROGEN 11 MG/DL (7-18); CALCIUM 8.2 MG/DL (8.5-10.1); CHLORIDE 99 MEQ/L (98-107); CREATININE 0.75 MG/DL (0.50-1.00); GLOMERULAR FILTRATION RATE 75 ML/MIN (>89); GLUCOSE,RANDOM 209 MG/DL (74-106); SODIUM (NA) 136 MEQ/L (136-145)
[2017-10-16 09:55] LABS: ALKALINE PHOSPHATASE 59 U/L (45-117); ALT (GPT) 10 U/L (10-53); TOTAL BILIRUBIN ADULT 0.7 MG/DL (0.2-1.0); TOTAL PROTEIN 6.5 GM/DL (6.4-8.2)
[2017-10-16] MEDS: predniSONE 5 MG/5 ML CUP PO SCH (10:20)
--- NOTE | 2017-10-16 12:12 | RADRPT ---
EXAM DATE/TIME: 10/16/2017 12:28 [place] COMPARISON: No previous studies available for comparison. INDICATIONS : Patient presents with pain and swelling in left wrist here for aspiration. MEDICAL HISTORY : Hypertension Carcinoma, Lung SURGICAL HISTORY : Colon Resection Thyroidectomy ENCOUNTER: Initial ACUITY: 3 days PAIN SCORE: 0/10 FLUORO TIME: 0 Minutes IMAGE SERIES: 1 DEVICE(S): 18 gauge needle was placed into the left wrist joint. Pre procedure pain level was 0/10 Post procedure pain level was 0/10 FLUID: Total volume of1 cc of cloudy yellow fluid was removed. PROCEDURE : 1. Fluoroscopically guided left wrist aspiration. The risks, benefits and alternatives to the procedure were explained and verbal and written consent w as obtained. The site was prepped in sterile fashion. Full sterile technique was used, including ca p, mask, sterile gloves and gown and a large sterile sheet. Hand hygiene and 2% chlorhexidine and/or betadine/alcohol prep was utilized per protocol for cutaneous antisepsis. The skin and subcutaneous tissues were infiltrated with local anesthetic solution. Ultrasound evaluation of the left wrist demonstrates confluent fluid overlying the proximal carpal ro w there is an overlying region was prepped and draped in the usual sterile fashion. 1% lidocaine solu tion was injected for local anesthesia. A short 18 gauge needle was advanced into the fluid collectio n under direct ultrasound guidance. Approximately 1 cc of turbid straw-colored fluid was removed. [place] rachel and withdrawn and a small dressing applied to the puncture site. The patient tolerated the procedure well and there were no complications. CONCLUSION: Uncomplicated aspiration as above. Wolf Woodward MD on October 16, 2017 at 12:06 Board Certified Radiologist. This report was verified electronically.
[2017-10-16 12:30] VITALS: BP 146/67; PULSE 68; RESP 16; TEMP 98.7; O2SAT 95
[2017-10-16 12:48] LABS: WBC, SYNOVIAL FLUID ND /MM3 (0-200)
[2017-10-16] MEDS: SODIUM CHLOR 0.9% 1000 ML INJ 1,000 ML IV SCH (14:41)
--- NOTE | 2017-10-16 14:51 | HHI.PR ---
Subjective Remarks c/o left wrist pain which is improved. + tenderness and swelling of left wrist. Denies cp/sob Afebrile. Objective Vitals Vital Signs Date Time Temp Pulse Resp B/P (MAP) Pulse Ox O2 Delivery O2 Flow Rate FiO2 10/16/17 12:30 98.7 68 16 146/67 (93) 95 10/16/17 07:25 97.6 79 16 121/60 (80) 95 10/15/17 23:41 98.0 88 18 159/73 (101) 90 10/15/17 19:06 76 16 132/60 (84) 97 Room Air 10/15/17 17:30 98.4 80 15 142/61 (88) 96 Room Air 10/15/17 14:57 99.0 89 17 175/77 (109) 98 Room Air 10/15/17 14:40 17 I/O 10/15/17 10/15/17 10/15/17 10/16/17 10/16/17 10/16/17 07:00 15:00 23:00 07:00 15:00 23:00 Intake Total 1000 ml Balance 1000 ml Intake IV Total 1000 ml # Voids 3 Result Diagram: 10/16/17 0920 10/16/17 0920 Imaging Last Impressions Aspiration 10/16/17 0000 Signed Impressions: Service Date/Time: Monday, October 16, 2017 12:28 - CONCLUSION: Uncomplicated aspiration as above. Wolf Woodward MD Wrist X-Ray 10/15/17 0000 Signed Impressions: Service Date/Time: Sunday, October 15, 2017 13:51 - CONCLUSION: 1. Moderate osteoarthritis of the first carpometacarpal joint with soft tissue swelling. No acute bony abnormality. aNin Hancock MD Wrist MRI 10/15/17 0000 Signed Impressions: Service Date/Time: Sunday, October 15, 2017 16:32 - CONCLUSION: Moderate severity, generalized carpal effusion and synovitis. Also mild tenosynovitis diffusely of the flexor and extensor tendons. These findings are nonspecific but would most likely be inflammatory. Infectious etiology not excludable. No abscess. No osteomyelitis. Ric Deutsch MD Objective Remarks AAox3 nad Clear lungs BL S1S2 RRR, no MRG abdomen soft, nt, nd left wrist is swollen, tender to palpation and warm to touch - other extremities without swelling Medications and IVs Current Medications Medications (Trade) Dose Ordered Sig/Brenda Route Start Time Stop Time Status Last Admin Sodium Chloride 1,000 ml @ 100 mls/hr Q10H IV 10/15/17 19:06 (NS Flush) 2 ml UNSCH PRN IV FLUSH 10/15/17 19:15 (NS Flush) 2 ml BID IV FLUSH 10/15/17 21:00 10/16/17 08:55 (Zofran Inj) 4 mg Q6H PRN IVP 10/15/17 19:15 10/16/17 12:09 (Tylenol) 650 mg Q6H PRN PO 10/15/17 19:15 (Morphine Inj) 2 mg Q3H PRN IV PUSH 10/15/17 19:15 (Jenni-Colace) 1 tab BID PO 10/15/17 21:00 10/16/17 08:55 (Milk Of Magnesia Liq) 30 ml Q12H PRN PO 10/15/17 19:15 (Senokot) 17.2 mg Q12H PRN PO 10/15/17 19:15 (Dulcolax Supp) 10 mg DAILY PRN RECTAL 10/15/17 19:15 (Lactulose Liq) 30 ml DAILY PRN PO 10/15/17 19:15 (Xanax) 0.25 mg Q6H PRN PO 10/15/17 19:15 (Lipitor) 20 mg HS PO 10/15/17 21:00 10/16/17 02:01 (Synthroid) 88 mcg DAILY@0600 PO 10/16/17 06:00 10/16/17 06:38 (Oramorph Sr) 15 mg Q6HR PO 10/16/17 00:00 10/16/17 12:03 (predniSONE LIQ) 4 mg DAILY PO 10/16/17 09:00 10/16/17 10:20 (Pill Splitter) 1 ea UNSCH PRN OTHER 10/15/17 19:45 (Norvasc) 2.5 mg DAILY PO 10/17/17 09:00 (Coreg) 25 mg BID PO 10/16/17 21:00 (CeleXA) 20 mg DAILY PO 10/17/17 09:00 A/P Problem List: (1) Inflammatory arthritis ICD Code: M19.90 - Unspecified osteoarthritis, unspecified site (2) Wrist pain, left ICD Code: M25.532 - Pain in left wrist (3) Leukocytosis ICD Code: D72.829 - Elevated white blood cell count, unspecified Assessment and Plan 1. Inflammatory Arthritis: h/o Rheumatoid Arthritis on chronic steroids and Methotrexate, now w/ erythema and joint effusion of left wrist, possibly inflammatory/septic arthritis. Will admit for Observation, Consult IR for joint aspiration, check Fluid Cell Count & Diff, Fluid Gram Stain, Fluid Crystals. Check CRP/ESR. Will hold off on antibiotics at this time until aspiration. Will Consult Ortho for further eval. 10/16 patient status post left wrist aspiration by IR. Not enough fluid available for Gram stain or culture. No crystals observed. Hand surgery consultation pending. I will increase the dose of prednisone to 20 mg p.o. daily. 2. Wrist Pain: Left, w/ associated erythema/edema, likely secondary to above. Wrist X-ray w/ moderate osteoarthritis of first carpometacarpal joint with soft tissue swelling, no acute bony abnormality. Wrist MRI with moderate severity, generalized carpal effusion and synovitis, also mild tenosynovitis diffusely of the flexor and extensor tendons, likely inflammatory however infectious etiology not excluded. No evidence of osteomyelitis, images reviewed by me. Continue w/ home MS IR, MS IV as needed. 3. Leukocytosis: WBC 11, likely secondary to chronic steroids w/ acute inflammatory process. Will monitor closely, repeat labs in am. 10/16 leukocytosis resolved. Monitor CBC. 4. DVT Prophylaxis: SCD/Teds 5. Social work for d/c planning as needed. 6. Chronic anemia: Hemoglobin stable. Continue to monitor CBC. Discharge Planning Pending hand surgery consultation. Pradeep Sheldon MD Oct 16, 2017 14:51
[2017-10-16 17:12] VITALS: BP 171/77; PULSE 68; RESP 16; TEMP 98.8; O2SAT 98
[2017-10-16] MEDS: CARVEDILOL 12.5 MG TAB PO SCH (22:11)
[2017-10-16 22:25] VITALS: BP 134/62; PULSE 73; RESP 18; TEMP 98.4; O2SAT 94
[2017-10-17] MEDS: MORPHINE SULFATE 15 MG CONTROLLED RELEASE TAB PO SCH ×3 (00:12→12:00)
[2017-10-17 01:03] VITALS: BP 133/63; PULSE 80; RESP 18; TEMP 98.9; O2SAT 93
[2017-10-17 06:58] LABS: AUTOMATED NEUTROPHIL # 5.8 TH/MM3 (1.8-7.7); BASOPHIL % 0.3 % (0.0-2.0); EOSINOPHIL # 0.2 TH/MM3 (0-0.4); HEMATOCRIT 28.4 % (35.0-46.0); HEMOGLOBIN 9.9 GM/DL (11.6-15.3); LYMPH % 13.3 % (9.0-44.0); LYMPHOCYTE # 1.1 TH/MM3 (1.0-4.8); MEAN CORPUSCULAR HEMOGLOBIN 28.5 PG (27.0-34.0); MEAN CORPUSCULAR HGB CONC 34.7 % (32.0-36.0); MEAN PLATELET VOLUME 7.2 FL (7.0-11.0); MONOCYTE # 1.3 TH/MM3 (0-0.9); NEUT % 69.4 % (16.0-70.0); PLATELET COUNT 200 TH/MM3 (150-450); RED BLOOD COUNT 3.46 MIL/MM3 (4.00-5.30); RED CELL DISTRIBUTION WIDTH 13.6 % (11.6-17.2); WHITE BLOOD COUNT 8.4 TH/MM3 (4.0-11.0)
[2017-10-17] MEDS: LEVOTHYROXINE SODIUM 88 MCG TAB PO SCH (07:00)
[2017-10-17 07:38] LABS: ALBUMIN 2.4 GM/DL (3.4-5.0); ALKALINE PHOSPHATASE 56 U/L (45-117); ALT (GPT) 9 U/L (10-53); AST (GOT) 12 U/L (15-37); BLOOD UREA NITROGEN 12 MG/DL (7-18); CALCIUM 8.3 MG/DL (8.5-10.1); CHLORIDE 102 MEQ/L (98-107); GLOMERULAR FILTRATION RATE 81 ML/MIN (>89); GLUCOSE,RANDOM 105 MG/DL (74-106); MAGNESIUM 1.4 MG/DL (1.5-2.5); PHOSPHORUS 3.9 MG/DL (2.5-4.9); SODIUM (NA) 139 MEQ/L (136-145); TOTAL BILIRUBIN ADULT 0.5 MG/DL (0.2-1.0); TOTAL PROTEIN 6.3 GM/DL (6.4-8.2)
[2017-10-17 07:53] VITALS: BP 132/61; PULSE 69; RESP 18; TEMP 98; O2SAT 93
--- NOTE | 2017-10-17 08:28 | MB ---
cc: Analilia Oconnell MD DATE: 10/16/2017 REASON FOR CONSULTATION: Left wrist pain and swelling. HISTORY OF PRESENT ILLNESS: Rubia Wheeler is a pleasant 77-year-old right-hand dominant female. Past medical history significant for lupus, rheumatoid arthritis, lung cancer, myocardial infarction with stents, pulmonary insufficiency, who states that approximately 2 days ago, she noted pain and swelling over the left wrist. The patient actually presented to the emergency room yesterday, mainly due to nausea after taking alendronate. The patient states she has intermittent pain and swelling of both hands and has seen Dr. Machado of orthopedics in the past, who was also treated her knees. Her tool grinder operator is Dr. Donnelly. Her hospital pharmacy director is Dr. Rebollar and her medical staff director is Dr. Beltran. The patient reports improvement in the wrist pain since presenting to the hospital yesterday. The patient was seen in the emergency room at approximately 02:00 p.m. on 10/15/2017. I was not called for evaluation until approximately 01:00 a.m. on 10/16/2017. The patient does take prednisone baseline. She reports improvement in the pain over the wrist with the splint. She denies any paresthesias. She denies any prior surgery on the left wrist. PAST MEDICAL HISTORY: Non-small cell lung cancer, rheumatoid arthritis, status post the OH. PAST SURGICAL HISTORY: Cataract surgery, tonsillectomy, cardiac stent, salpingo-oophorectomy, thyroidectomy. ALLERGIES: CLARITHROMYCIN, FLUCONAZOLE, LEFLUNOMIDE, LEVOFLOXACIN, CIPROFLOXACIN, CODEINE. PHYSICAL EXAMINATION: GENERAL: The patient is alert and oriented. VITAL SIGNS: Temperature 98.4. MUSCULOSKELETAL: Left wrist is in a splint. Splint removed. The patient has mild swelling over the left wrist. No pain with range of motion of the fingers. Minimal pain with passive range of motion of the wrist. Mild warmth over the wrist. Sensation intact in the median, ulnar, radial distribution. 2+ radial pulse. LABORATORY DATA: white count 9.5, ESR 53, CRP 5.8, glucose 209. IMAGING: X-rays of the wrist shows moderate CMC arthritis. No significant arthritis of the wrist. MRI of the wrist performed on 10/15, at 16:32, shows moderate carpal effusion and tenosynovitis of the flexor and extensor tendons, consistent with inflammatory changes. No evidence of osteomyelitis or abscess. The patient was scheduled for aspiration of the wrist by radiology at approximately noon. Unfortunately, the lab reported insufficient quantity for the cell count. I spoke with the radiologist personally who stated that this was cloudy fluid and approximately 1 mL was sent to the lab. No crystals evident. Gram stain shows few white blood cells, no organisms. ASSESSMENT AND PLAN: This is a 77-year-old female admitted for nausea and left wrist pain. The patient reports some improvement since admission. She is asking for discharge. The patient is concerned that she is at high risk for surgical intervention. Unfortunately, the cell count was not performed on the fluid. Treatment options discussed with the patient including observation in the hospital versus repeat aspiration versus surgical intervention. The patient declined surgical intervention at this time. At this time, I recommend observation overnight and repeat evaluation tomorrow. If the patient requires surgical intervention, this will likely have to be done under a block and would need medical clearance. Analilia Oconnell MD [facility] , 10:42 PM , 11:05 PM [place]
[2017-10-17] MEDS ORDERED: CITALOPRAM HYDROBROMIDE 20 MG TAB PO SCH (09:00)
[2017-10-17] MEDS ORDERED: amLODIPine BESYLATE 5 MG TAB PO SCH (09:00)
--- NOTE | 2017-10-17 09:07 | PD.PN.STU ---
Subjective Remarks Patient is feeling better today. Wrist pain has improved. Denies shortness of breath, abdominal pain, chest pain, nausea/vomiting. Complains of dry mouth related to no PO intake. Objective Vitals Vital Signs Date Time Temp Pulse Resp B/P (MAP) Pulse Ox O2 Delivery O2 Flow Rate FiO2 10/17/17 07:53 98.0 69 18 132/61 (84) 93 10/17/17 01:03 98.9 80 18 133/63 (86) 93 10/16/17 22:25 98.4 73 18 134/62 (86) 94 10/16/17 17:12 98.8 68 16 171/77 (108) 98 10/16/17 12:30 98.7 68 16 146/67 (93) 95 I/O 10/16/17 10/16/17 10/16/17 10/17/17 10/17/17 10/17/17 07:00 15:00 23:00 07:00 15:00 23:00 # Voids 3 Result Diagram: 10/17/17 0535 10/17/17 0526 Other Results Laboratory Tests Test 10/15/17 13:30 10/16/17 09:20 10/16/17 11:33 10/17/17 05:26 White Blood Count 11.5 TH/MM3 9.5 TH/MM3 Red Blood Count 3.78 MIL/MM3 3.53 MIL/MM3 Hemoglobin 10.6 GM/DL 9.9 GM/DL Hematocrit 31.3 % 28.9 % Mean Corpuscular Volume 82.9 FL 81.9 FL Mean Corpuscular Hemoglobin 28.0 PG 28.0 PG Mean Corpuscular Hemoglobin Concent 33.8 % 34.2 % Red Cell Distribution Width 13.6 % 13.3 % Platelet Count 226 TH/MM3 196 TH/MM3 Mean Platelet Volume 6.9 FL 6.9 FL Neutrophils (%) (Auto) 76.1 % 79.7 % Lymphocytes (%) (Auto) 9.6 % 10.0 % Monocytes (%) (Auto) 12.5 % 9.5 % Eosinophils (%) (Auto) 1.5 % 0.4 % Basophils (%) (Auto) 0.3 % 0.4 % Neutrophils # (Auto) 8.8 TH/MM3 7.6 TH/MM3 Lymphocytes # (Auto) 1.1 TH/MM3 0.9 TH/MM3 Monocytes # (Auto) 1.4 TH/MM3 0.9 TH/MM3 Eosinophils # (Auto) 0.2 TH/MM3 0.0 TH/MM3 Basophils # (Auto) 0.0 TH/MM3 0.0 TH/MM3 CBC Comment DIFF FINAL DIFF FINAL Differential Comment Erythrocyte Sedimentation Rate 53 mm/hr 56 mm/hr Blood Urea Nitrogen 13 MG/DL 11 MG/DL 12 MG/DL Creatinine 0.59 MG/DL 0.75 MG/DL 0.70 MG/DL Random Glucose 121 MG/DL 209 MG/DL 105 MG/DL Total Protein 6.6 GM/DL 6.5 GM/DL 6.3 GM/DL Albumin 2.7 GM/DL 2.5 GM/DL 2.4 GM/DL Calcium Level 7.9 MG/DL 8.2 MG/DL 8.3 MG/DL Alkaline Phosphatase 67 U/L 59 U/L 56 U/L Aspartate Amino Transf (AST/SGOT) 10 U/L 10 U/L 12 U/L Alanine Aminotransferase (ALT/SGPT) 10 U/L 10 U/L 9 U/L Total Bilirubin 0.7 MG/DL 0.7 MG/DL 0.5 MG/DL Sodium Level 136 MEQ/L 136 MEQ/L 139 MEQ/L Potassium Level 3.3 MEQ/L 3.9 MEQ/L 3.6 MEQ/L Chloride Level 101 MEQ/L 99 MEQ/L 102 MEQ/L Carbon Dioxide Level 28.1 MEQ/L 29.3 MEQ/L 31.0 MEQ/L Anion Gap 7 MEQ/L 8 MEQ/L 6 MEQ/L Estimat Glomerular Filtration Rate 98 ML/MIN 75 ML/MIN 81 ML/MIN C-Reactive Protein 5.80 MG/DL 9.40 MG/DL Synovial Fluid Color YELLOW Synovial Fluid Appearance MODERATE Synovial Fluid WBC /MM3 Synovial Fluid RBC /MM3 Synovial Fluid Neutrophils % Synovial Fluid Lymphocytes % Synovial Fluid Crystals NONE Phosphorus Level 3.9 MG/DL Magnesium Level 1.4 MG/DL Test 10/17/17 05:35 White Blood Count 8.4 TH/MM3 Red Blood Count 3.46 MIL/MM3 Hemoglobin 9.9 GM/DL Hematocrit 28.4 % Mean Corpuscular Volume 82.0 FL Mean Corpuscular Hemoglobin 28.5 PG Mean Corpuscular Hemoglobin Concent 34.7 % Red Cell Distribution Width 13.6 % Platelet Count 200 TH/MM3 Mean Platelet Volume 7.2 FL Neutrophils (%) (Auto) 69.4 % Lymphocytes (%) (Auto) 13.3 % Monocytes (%) (Auto) 15.0 % Eosinophils (%) (Auto) 2.0 % Basophils (%) (Auto) 0.3 % Neutrophils # (Auto) 5.8 TH/MM3 Lymphocytes # (Auto) 1.1 TH/MM3 Monocytes # (Auto) 1.3 TH/MM3 Eosinophils # (Auto) 0.2 TH/MM3 Basophils # (Auto) 0.0 TH/MM3 CBC Comment DIFF FINAL Differential Comment Imaging Last Impressions Aspiration 10/16/17 0000 Signed Impressions: Service Date/Time: Monday, October 16, 2017 12:28 - CONCLUSION: Uncomplicated aspiration as above. Wolf Woodward MD Wrist X-Ray 10/15/17 0000 Signed Impressions: Service Date/Time: Sunday, October 15, 2017 13:51 - CONCLUSION: 1. Moderate osteoarthritis of the first carpometacarpal joint with soft tissue swelling. No acute bony abnormality. Nain Hancock MD Wrist MRI 10/15/17 0000 Signed Impressions: Service Date/Time: Sunday, October 15, 2017 16:32 - CONCLUSION: Moderate severity, generalized carpal effusion and synovitis. Also mild tenosynovitis diffusely of the flexor and extensor tendons. These findings are nonspecific but would most likely be inflammatory. Infectious etiology not excludable. No abscess. No osteomyelitis. Ric Deutsch MD Objective Remarks AAox3 No acute distress. Clear lungs BL S1S2 RRR, no MRG abdomen soft, nt, nd left wrist is tender to palpation with limited flexion and extension - other extremities without swelling A/P Assessment and Plan 1. Inflammatory Arthritis: h/o Rheumatoid Arthritis on chronic steroids and Methotrexate, now w/ erythema and joint effusion of left wrist, possibly inflammatory/septic arthritis. Will admit for Observation, Consult IR for joint aspiration, check Fluid Cell Count & Diff, Fluid Gram Stain, Fluid Crystals. Check CRP/ESR. Will hold off on antibiotics at this time until aspiration. Will Consult Ortho for further eval. 10/16 patient status post left wrist aspiration by IR. Not enough fluid available for Gram stain or culture. No crystals observed. Hand surgery consultation pending. I will increase the dose of prednisone to 20 mg p.o. daily. 10/17 hand surgery consultation appreciated. They will reassess her at 1pm this afternoon. 2. Wrist Pain: Left, w/ associated erythema/edema, likely secondary to above. Wrist X-ray w/ moderate osteoarthritis of first carpometacarpal joint with soft tissue swelling, no acute bony abnormality. Wrist MRI with moderate severity, generalized carpal effusion and synovitis, also mild tenosynovitis diffusely of the flexor and extensor tendons, likely inflammatory however infectious etiology not excluded. No evidence of osteomyelitis, images reviewed by me. Continue w/ home MS IR, MS IV as needed. 10/17 pain better with decreased swelling, erythema and warmth. 3. Leukocytosis: WBC 11, likely secondary to chronic steroids w/ acute inflammatory process. Will monitor closely, repeat labs in am. 10/16 leukocytosis resolved. Monitor CBC. 10/17 WBC 8.4 and trending down. 4. DVT Prophylaxis: SCD/Teds 5. Social work for d/c planning as needed. 6. Chronic anemia: Hemoglobin stable. Continue to monitor CBC. 10/17 hbg 9.9 remaining stable. Discharge Planning Pending hand surgery reevaluation today. Analilia Mcelroy M3 Oct 17, 2017 09:07
[2017-10-17] MEDS: SODIUM CHLORIDE 0.9% FLUSH 10 ML FLUSH IV FLUSH SCH (09:20)
[2017-10-17] MEDS: DOCUSATE SODIUM 50 MG/SENNA 8.6 MG TAB PO SCH (09:20)
[2017-10-17] MEDS: predniSONE 5 MG/5 ML CUP PO SCH (09:21)
[2017-10-17] MEDS: CARVEDILOL 12.5 MG TAB PO SCH (09:21)
[2017-10-17 11:38] VITALS: BP 138/62; PULSE 68; RESP 18; TEMP 97.9; O2SAT 96
[2017-10-17] MEDS ORDERED: PRED10PA2 PO (14:45)
--- NOTE | 2017-10-17 14:46 | HHI.DCPOC ---
Discharge Care Plan Diagnosis: (1) Inflammatory arthritis (2) Wrist pain, left (3) Monoarticular arthritis Goals to Promote Your Health * To prevent worsening of your condition and complications * To maintain your health at the optimal level Directions to Meet Your Goals Take your medications as prescribed Follow your dietary instruction Follow activity as directed Keep your appointments as scheduled Take your immunizations and boosters as scheduled If your symptoms worsen call your PCP, if no PCP go to Urgent Care Center or Emergency Room Smoking is Dangerous to Your Health. Avoid second hand smoke Call the 24-hour hour crisis hotline for domestic abuse at Pradeep Sheldon MD Oct 17, 2017 14:46
[2017-10-17] MEDS ORDERED: predniSONE 20 MG TAB PO ONE (15:00)
--- NOTE | 2017-10-17 15:01 | HHI.DS ---
Discharge Summary Admission Date Oct 15, 2017 at 18:40 Discharge Date: Oct 17, 2017 Admitting Diagnosis (1) Inflammatory arthritis ICD Code: M19.90 - Unspecified osteoarthritis, unspecified site Diagnosis: Principal Status: Acute (2) Wrist pain, left ICD Code: M25.532 - Pain in left wrist Diagnosis: Principal Status: Acute (3) Leukocytosis ICD Code: D72.829 - Elevated white blood cell count, unspecified Diagnosis: Principal Status: Resolved Procedures Aspiration of the left wrist. Brief History - From Admission This is a 77-year-old female with a PMH of Non-small Cell Lung CA s/p Chemo/ Radiation, T-Spine CxFx, Chronic Pain, Rheumatoid Arthritis on Methotrexate and Chronic Steroid Therapy who initially presented to the ER w/ complaints of nausea/vomiting after taking her Alendronate today. States she had similar symptoms last week after taking it. Also reports left wrist pain w/ some swelling/erythema x2 days. States pain worse today, constant, moderate-severe, 6-7/20, worse w/ movement, wearing brace helps. Denies fever or chills. On arrival, BP 175/77, HR 89, O2 sat 98% RA, Type 99.0. WBC 11.5. Chemistry essentially unremarkable. Wrist X-ray with moderate osteoarthritis of first carpometacarpal joint with soft tissue swelling, no acute bony abnormality. Dr. Mclean w/ IR consulted for joint aspiration, recommended MRI Wrist w/ aspiration and Ortho eval in am. CBC/BMP: 10/17/17 0535 10/17/17 0526 Significant Findings Laboratory Tests Test 10/15/17 13:30 10/16/17 09:20 10/16/17 11:33 10/17/17 05:26 White Blood Count 11.5 TH/MM3 (4.0-11.0) Red Blood Count 3.78 MIL/MM3 (4.00-5.30) 3.53 MIL/MM3 (4.00-5.30) Hemoglobin 10.6 GM/DL (11.6-15.3) 9.9 GM/DL (11.6-15.3) Hematocrit 31.3 % (35.0-46.0) 28.9 % (35.0-46.0) Mean Platelet Volume 6.9 FL (7.0-11.0) 6.9 FL (7.0-11.0) Neutrophils (%) (Auto) 76.1 % (16.0-70.0) 79.7 % (16.0-70.0) Monocytes (%) (Auto) 12.5 % (0.0-8.0) 9.5 % (0.0-8.0) Neutrophils # (Auto) 8.8 TH/MM3 (1.8-7.7) Monocytes # (Auto) 1.4 TH/MM3 (0-0.9) Erythrocyte Sedimentation Rate 53 mm/hr (0-30) 56 mm/hr (0-30) Random Glucose 121 MG/DL (74-106) 209 MG/DL (74-106) Albumin 2.7 GM/DL (3.4-5.0) 2.5 GM/DL (3.4-5.0) 2.4 GM/DL (3.4-5.0) Calcium Level 7.9 MG/DL (8.5-10.1) 8.2 MG/DL (8.5-10.1) 8.3 MG/DL (8.5-10.1) Aspartate Amino Transf (AST/SGOT) 10 U/L (15-37) 10 U/L (15-37) 12 U/L (15-37) Potassium Level 3.3 MEQ/L (3.5-5.1) C-Reactive Protein 5.80 MG/DL (0.00-0.30) 9.40 MG/DL (0.00-0.30) Lymphocytes # (Auto) 0.9 TH/MM3 (1.0-4.8) Estimat Glomerular Filtration Rate 75 ML/MIN (>89) 81 ML/MIN (>89) Synovial Fluid Appearance MODERATE (CLEAR) Total Protein 6.3 GM/DL (6.4-8.2) Magnesium Level 1.4 MG/DL (1.5-2.5) Alanine Aminotransferase (ALT/SGPT) 9 U/L (10-53) Test 10/17/17 05:35 Red Blood Count 3.46 MIL/MM3 (4.00-5.30) Hemoglobin 9.9 GM/DL (11.6-15.3) Hematocrit 28.4 % (35.0-46.0) Monocytes (%) (Auto) 15.0 % (0.0-8.0) Monocytes # (Auto) 1.3 TH/MM3 (0-0.9) Imaging Last Impressions Aspiration 10/16/17 0000 Signed Impressions: Service Date/Time: Monday, October 16, 2017 12:28 - CONCLUSION: Uncomplicated aspiration as above. Wolf Woodward MD Wrist X-Ray 10/15/17 0000 Signed Impressions: Service Date/Time: Sunday, October 15, 2017 13:51 - CONCLUSION: 1. Moderate osteoarthritis of the first carpometacarpal joint with soft tissue swelling. No acute bony abnormality. Nain Hancock MD Wrist MRI 10/15/17 0000 Signed Impressions: Service Date/Time: Sunday, October 15, 2017 16:32 - CONCLUSION: Moderate severity, generalized carpal effusion and synovitis. Also mild tenosynovitis diffusely of the flexor and extensor tendons. These findings are nonspecific but would most likely be inflammatory. Infectious etiology not excludable. No abscess. No osteomyelitis. Ric Deutsch MD PE at Discharge AAox3 nad Clear lungs BL S1S2 RRR, no MRG abdomen soft, nt, nd Left wrist is in a splint. Splint removed. The patient has mild swelling over the left wrist. No pain with range of motion of the fingers. Minimal pain with passive range of motion of the wrist. Mild warmth over the wrist. Sensation intact in the median, ulnar, radial distribution. 2+ radial pulse. Pt update on day of discharge The patient states that the pain is controlled, swelling still present in the left breast however patient states is better. Hospital Course The patient was placed under observation in the observation unit. Patient history of rheumatoid arthritis on chronic steroids and methotrexate. Presented with erythema and joint effusion of the left wrist, possibly inflammatory versus septic arthritis. ESR and CRP were elevated. Patient had a wrist x-ray which showed moderate osteoarthritis of the first carpometacarpal joint with soft tissue swelling. No acute bony abnormality. Left wrist MRI shows moderate severity generalized carpal effusion and synovitis. Also mild tenosynovitis diffusely of the flexor and extensor tendons. Findings nonspecific but would most likely be inflammatory. The patient underwent aspiration of the left breast by interventional radiology, unfortunately not enough fluid was obtained to be able to perform white blood cell count on the fluid. There were no synovial crystals seen. Hand surgery was also consulted and cleared the patient to be discharged. Patient will be administered 40 mg p.o. of oral prednisone prior to discharge and will be discharged on an oral steroid taper. I will also give the patient naproxen for pain relief. Pt Condition on Discharge: Stable Discharge Disposition: Discharge Home Discharge Time: <= 30 minutes Discharge Instructions DIET: Follow Instructions for: Heart Healthy Diet Activities you can perform: Regular-No Restrictions Activities to Avoid: Lifting/Bending Other Activity Instructions: avoid lifting heavy objects with left arm Follow up Referrals: PCP Follow-up - 1 Week New Medications: Naproxen (Naproxen) 500 Mg Tab 500 MG PO BID for Inflammation, #10 TAB 0 Refills Prednisone (48) 10 mg tab Dose Pack (Prednisone (48) 10 mg tab Dose Pack) 10 Mg Dspk 10 MG PO DIRECTED for Inflammation, #1 DSPK 0 Refills Continued Medications: Alendronate (Alendronate) 70 Mg Tab 70 MG PO Q7D for Osteporosis Treatment, #4 TAB 0 Refills Alprazolam (Alprazolam) 0.25 Mg Tab 0.25 MG PO Q6H PRN for ANXIETY, TAB 0 Refills Amlodipine (Norvasc) 5 Mg Tab 2.5 MG PO DAILY for Blood Pressure Management, #30 TAB 0 Refills Ascorbic Acid ER (Vitamin C ER) 500 Mg Octaviano 500 MG PO DAILY for Nutritional Supplement, TAB 0 Refills Aspirin (Aspirin) 81 Mg Chew 81 MG CHEW DAILY, TAB 0 Refills Atorvastatin (Lipitor) 20 Mg Tab 20 MG PO HS for Cholesterol Management, #30 TAB 0 Refills Calcium Carbonate-Cholecalciferol (Calcium 500 +D) 500-400 Mg-Unit Tab 1 TAB PO BID for Calcium Supplement, TAB 0 Refills Carvedilol (Carvedilol) 12.5 Mg Tab 25 MG PO BID, #60 TAB 0 Refills Citalopram (Citalopram) 10 Mg Tab 20 MG PO DAILY for Control Depression, #30 TAB 0 Refills Coenzyme Q10 (Ubidecarenone) (Coq10) 50 Mg Cap 150 CAP PO DAILY Levothyroxine (Levothyroxine) 88 Mcg Tab 88 MCG PO DAILY for Thyroid, #30 TAB 0 Refills Morphine ER (Morphine ER) 15 Mg Tab 15 MG PO Q6HR for Pain Management, TAB 0 Refills [place]-3 Fatty Acids ([place] 3 1000 mg) 300 Mg-1,000 Mg Cap 1 TAB PO DAILY Omeprazole Magnesium (Prilosec) 20 Mg Tab 1 TAB PO DAILY Vitamins A and D (Vitamin A and D) 1 Each Capsule 5000 UNITS PO DAILY Discontinued Medications: Prednisone (Prednisone) 5 Mg Tab 4 MG PO DAILY, TAB 0 Refills Pradeep Sheldon MD Oct 17, 2017 15:01
[2017-10-17] MEDS ORDERED: NAPR500T2 PO (15:03)
[2017-10-17] MEDS ORDERED: NAPROXEN 500 MG TAB PO SCH (15:30)
== END 2017-10-17 17:14 | disposition home or self-care (01) ==
LOC: NEPE 11:23 → NEDA 18:40 → NEPGCP 20:55
PROVIDERS: ADMIT Hospitalist; ATTEND Hospitalist
DX: M06.4 Inflammatory polyarthropathy (principal); M25.532 Pain in left wrist; D72.829 Elevated white blood cell count, unspecified; D64.9 Anemia, unspecified; R11.2 Nausea with vomiting, unspecified; M06.9 Rheumatoid arthritis, unspecified; M65.9 Synovitis and tenosynovitis, unspecified; I10 Essential (primary) hypertension; I25.2 Old myocardial infarction; M48.54XA Collapsed vertebra, not elsewhere classified, thoracic region, initial encounter for fracture; Z95.5 Presence of coronary angioplasty implant and graft; Z85.118 Personal history of other malignant neoplasm of bronchus and lung; Z92.21 Personal history of antineoplastic chemotherapy; Z92.3 Personal history of irradiation; Z79.891 Long term (current) use of opiate analgesic; Z79.52 Long term (current) use of systemic steroids; Z79.899 Other long term (current) drug therapy; Z79.82 Long term (current) use of aspirin
CPT/HCPCS: 20606; 73110; 73223; 80053; 83735; 84100; 85025; 85652; 86140; 87070; 87205; 89051; 89060; 96361; 96374; 96376; 99285; A9579; G0378; J2405; J7030; J7512